=== PATIENT | female | born 1950 | race Caucasian/White ===

== ENCOUNTER 2022-01-09 08:03 | Emergency (ER) | payer OTHER, SELFPAY ==
--- NOTE | ~2022-01-09 | XR_ITS ---
EXAMINATION: XR ankle RT min 3V DATE: 01/09/2022 08:25 INDICATION: Generalized right ankle pain post injury while running TECHNIQUE: Anteroposterior, oblique, mortise, and lateral views of the right ankle were obtained. COMPARISON: None. FINDINGS: Alignment is normal. No fracture. Joint spaces are well maintained. No ankle joint effusion. The so ft tissues are unremarkable. IMPRESSION: 1. Negative right ankle radiographs. Reviewed, dictated and finalized at location A.
--- NOTE | 2022-01-09 08:07 | ED.LOWEXIN ---
HPI - Extremity Injury (Lower) General Chief Complaint: Extremity Injury, Lower Stated Complaint: Right Ankle Injury Time Seen by Provider: 01/09/22 08:06 Source: patient Mode of arrival: ambulatory Limitations: no limitations History of Present Illness HPI Narrative: Ms. Farrar is a 71-year-old female patient presenting to the clinic today with complaints of right ankle pain/injury when she was playing water tag yesterday with her granddaughter. She reports she is having pain to the back of her ankle and to the lateral ankle. Is unable to bear weight as the pain is a 9 out of 10. Is walking currently on crutches Related Data Home Medications Medication Instructions Recorded Confirmed No Home Medications 01/09/22 01/09/22 Allergies Allergy/AdvReac Type Severity Reaction Status Date / Time No Known Allergies Allergy Unknown Unknown Uncoded 01/09/22 08:33 Review of Systems Review of Systems: Pertinent positives per HPI. Patient denies any fever, chills, rash, headache, visual changes, dizziness, cough, runny nose, sore throat, shortness of breath, chest pain, palpitations, nausea, vomiting, diarrhea, constipation, abdominal pain, or any urinary issues. [facility] Past Medical History Medical History Age-related nuclear cataract, bilateral HLD (hyperlipidemia) Family History Family History Sibling Family history of malignant neoplasm Social History Social History Smoking status: Never smoker Second hand tobacco smoke exposure: No Alcohol intake: never Substance use: never Substance use type: does not use Gender identity (if verbalized by the patient): Female Sexual Orientation (if Verbalized by the Patient): Straight or Heterosexual Comments At the time of my signature, I reviewed and agree with the nursing past medical, surgical, social, and family history. There is no relevant family history pertinent to the patient complaint. Exam Narrative: General: Well-developed, well nourished, in no apparent distress Head: Normocephalic, atraumatic. Cardio: Regular rate and rhythm, s1 and s2 normal, no murmur appreciated. Resp: Clear to auscultation bilaterally, no rhonchi, rales, wheezing or rubs. Musculoskeletal: No deformity, tender to palpation over the posterior heel and lateral ankle, pain over the Achilles tendon with dorsiflexion and plantar flexion against resistance, painful to bear weight-rates pain 9 out of 10, grossly normal range of motion, muscle strength strong and equal, peripheral pulse strong, no edema, no cyanosis, walking on crutches Course Course Emergency Course: Portions of this record may have been created with voice recognition software. Level of Care: Express Care Visit Vital Signs Vital signs: Vital Signs Temperature 36.7 C 01/09/22 08:08 Pulse Rate 82 01/09/22 08:08 Respiratory Rate 16 01/09/22 08:08 Blood Pressure 137/83 01/09/22 08:08 Pulse Oximetry 100 01/09/22 08:08 Temperature 36.7 C 01/09/22 08:08 Pulse Rate 82 01/09/22 08:08 Respiratory Rate 16 01/09/22 08:08 Blood Pressure 137/83 01/09/22 08:08 Pulse Oximetry 100 01/09/22 08:08 Vital signs reviewed MDM - Extremity Injury (Lower) MDM Narrative Medical decision making narrative: At the time of visit patient is resting comfortably on the exam table. X-ray was performed to the right ankle and was negative. I suspect the patient has a sprain to the Achilles tendon as well as to the lateral fibular. Dipak wrap was applied and supportive measures were discussed with patient she voiced understanding of discharge instructions agrees with treatment plan. Differential Diagnosis Differential diagnosis: Likely ankle sprain and strain and ankle fracture Imaging Data Attestation: I personally reviewed and in
[2022-01-09 08:08] VITALS: BP 137/83; PULSE 82; RESP 16; TEMP 36.7; O2SAT 100
== END 2022-01-09 09:00 | disposition home or self-care (01) ==
PROVIDERS: Emergency Provider Nurse Practitioner Family; PCP Family Medicine
DX: S93.401A Sprain of unspecified ligament of right ankle, initial encounter (principal); X58.XXXA Exposure to other specified factors, initial encounter; Y93.89 Activity, other specified; E78.5 Hyperlipidemia, unspecified; H25.13 Age-related nuclear cataract, bilateral
CPT/HCPCS: 73610; 99213; G0463

== ENCOUNTER 2022-07-04 09:25 | Emergency (ER) | payer OTHER, SELFPAY ==
[2022-07-04 09:37] VITALS: BP 148/64; PULSE 108; RESP 16; TEMP 39.3; O2SAT 100
--- NOTE | 2022-07-04 09:40 | ED.URI ---
HPI - URI/Sore Throat General Chief Complaint: Upper Respiratory Infection Stated Complaint: left finger swollen/sore throat aches fever Time Seen by Provider: 07/04/22 09:30 Source: patient and RN notes reviewed History of Present Illness HPI Narrative: patient is a 72-year-old female who presents to the Urgent Care with complaints of body aches, sore throat, fever. Patient states that it started last night and she gargled with salt water but is not treated the fever. 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 No other acute complaints. No acute distress noted. Patient aware of the plan of care. Some parts of this dictation were generated by voice recognition software and may contain typographical and/or grammatical inaccuracies. Related Data Allergies Allergy/AdvReac Type Severity Reaction Status Date / Time No Known Allergies Allergy Verified 07/04/22 10:00 Review of Systems Review of Systems: CONSTITUTIONAL: reports fever EYES: Denies visual changes, redness, or discharge. ENT: Denies rhinorrhea, congestion, Otalgia. Reports a sore throat CARDIOVASCULAR: Denies chest pain, palpitations, or edema. RESPIRATORY: Denies cough or dyspnea. GASTROINTESTINAL: Denies abdominal pain, nausea, vomiting, or diarrhea. GENITOURINARY: Denies dysuria or hematuria. SKIN: Denies rash or itching. MUSCULOSKELETAL: Denies back pain, joint pain. Reports body aches NEUROLOGIC: Denies headache, numbness, or weakness. All other systems reviewed are negative, except as documented in HPI. [facility] Past Medical History Medical History Age-related nuclear cataract, bilateral HLD (hyperlipidemia) Family History Family History Sibling Family history of malignant neoplasm Social History Social History Smoking status: Never smoker Second hand tobacco smoke exposure: No Alcohol intake: never Substance use: never Substance use type: does not use Gender identity (if verbalized by the patient): Female Sexual Orientation (if Verbalized by the Patient): Straight or Heterosexual Spiritual care concerns: No Comments At the time of my signature, I reviewed and agree with the nursing past medical, surgical, social, and family history. There is no relevant family history pertinent to the patient complaint. Exam Narrative: GENERAL: This is a well-nourished, well-developed patient. Appears fatigued HEAD: normocephalic, atraumatic. EYES: PERRL. Sclera clear/white. Vision is grossly intact. EARS: External ears normal, auditory canals clear and without drainage, TMs normal without perforation. Hearing grossly intact. NOSE: External nose normal with no obvious nasal discharge, nares without redness, no rhinorrhea. THROAT: Mucous membranes moist, posterior pharynx clear. moderate postnasal drainage NECK: Neck supple, non-tender without lymphadenopathy, masses or thyromegaly. CARDIOVASCULAR: Regular rate and rhythm without murmurs, gallops, or rubs. RESPIRATORY: Clear to auscultation. Breath sounds equal bilaterally. No wheezes, rales, or rhonchi. SKIN: slightly flushed.warm, intact with no suspicious lesions or rash, good texture and turgor. NEURO: awake, alert, and oriented to person, place and time. There were no obvious focal neurologic abnormalities. EXTREMITIES: No clubbing, cyanosis, or edema. Course Course Level of Care: Express Care Visit Vital Signs Vital signs: Vital Signs Temperature 102.8 F H 07/04/22 09:37 Pulse Rate 108 H 07/04/22 09:37 Respiratory Rate 16 07/04/22 09:37 Blood Pressure 148/64 H 07/04/22 09:37 Pulse Oximetry 100 07/04/22 09:37 Oxygen Delivery Room Air 07/04/22 09:37 Temperature 102.8 F H 07/04/22 09:37 Pulse Rate 108 H
== END 2022-07-04 10:18 | disposition home or self-care (01) ==
PROVIDERS: Emergency Provider Nurse Practitioner Family; PCP Family Medicine
DX: J02.9 Acute pharyngitis, unspecified (principal); Z20.818 Contact with and (suspected) exposure to other bacterial communicable diseases; E78.5 Hyperlipidemia, unspecified; H25.13 Age-related nuclear cataract, bilateral
CPT/HCPCS: 87081; 87804; 87880; 99213; G0463

== ENCOUNTER 2022-07-25 09:00 | Outpatient (CLI) | payer OTHER, SELFPAY ==
--- NOTE | ~2022-07-25 | XR_ITS ---
EXAMINATION: XR chest 2V 07/25/2022 09:37 INDICATION: Right-sided chest pain PROCEDURE: 2 view chest COMPARISON: 04/17/2019 FINDINGS: The lungs are clear. The cardiomediastinal silhouette is within normal limits. There are no pleural effusions. There is no pneumothorax suspected. IMPRESSION: 1: NO ACUTE CARDIOPULMONARY DISEASE. Reviewed, dictated and finalized at location A. [employer]
[2022-07-25 10:37] LABS: Influenza A QL RT-PCR Negative (Negative); Influenza B QL RT-PCR Negative (Negative); SARS-CoV-2 RNA PCR Negative
== END 2022-07-25 09:01 | disposition home or self-care (01) ==
LOC: ANHLAB 09:03
PROVIDERS: PCP Family Medicine; Visit Provider Physician Assistant
DX: R51.9 Headache, unspecified (principal); J02.9 Acute pharyngitis, unspecified; R07.89 Other chest pain
CPT/HCPCS: 71046; 87636

== ENCOUNTER 2022-12-21 00:42 | Day surgery (SDC) | payer OTHER, SELFPAY ==
[2022-12-20 13:15] VITALS: BMI 19.4
[2022-12-21] VITALS (9 sets, daily range): BP systolic 102–169; BP diastolic 60–83; PULSE 58–74; RESP 11–16; TEMP 36.4; O2SAT 98–100
--- NOTE | 2022-12-21 10:19 | PM.IMHP ---
H&P: HPI History of Present Illness Date/Time: 12/21/22 10:19 Chief Complaint: ERNIE Narrative: Patient presents for outpatient ERNIE. Referred by Dr. Gallardo. Patient is a 72-year-old female with a hyperlipidemia, history of TIAs. 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 Thought to be possible cause of recurrent TIA. Patient presents today for follow-up ERNIE. No complaints this morning. No issues with her last ERNIE. Review of Systems Review of Systems: All systems reviewed & are unremarkable except as noted in HPI and below (HPI) [facility] Past Medical History Medical History Age-related nuclear cataract, bilateral HLD (hyperlipidemia) Family History Family History Sibling Family history of malignant neoplasm Social History Social History Smoking status: Never smoker Second hand tobacco smoke exposure: No Alcohol intake: never Substance use: never Substance use type: does not use Living arrangements: alone Occupation/Education: retired Gender identity (if verbalized by the patient): Female Sexual Orientation (if Verbalized by the Patient): Straight or Heterosexual Spiritual care concerns: No Meds Home Medications and Allergies Home Medications Medication Instructions Recorded Confirmed Type aspirin 81 mg tablet,delayed 81 mg PO DAILY 08/30/22 12/20/22 History release (Adult Low Dose Aspirin) clopidogrel 75 mg tablet 75 mg PO DAILY 08/30/22 12/20/22 History rosuvastatin 10 mg tablet 10 mg PO DAILY 08/30/22 12/20/22 History glucosamine-chondroitin 250 mg-200 1 tablet PO BID 12/20/22 12/20/22 History mg tablet (Osteo Bi-Flex) Allergies Allergy/AdvReac Type Severity Reaction Status Date / Time No Known Allergies Allergy Verified 12/21/22 08:50 Vital Signs Vital Signs - 24 hr 12/21/22 08:55 12/21/22 09:50 12/21/22 10:00 Temperature 36.4 C Pulse Rate 74 63 71 Respiratory Rate 16 12 14 Blood Pressure 132/66 165/79 H 141/68 H Pulse Oximetry 98 100 99 Oxygen Delivery Room Air Nasal Cannula Nasal Cannula Oxygen Flow Rate 3 3 04/28/23 10:05 12/21/22 09:55 12/21/22 10:15 Temperature Pulse Rate 61 70 58 L Respiratory Rate 12 16 11 L Blood Pressure 133/70 169/83 H 120/67 Pulse Oximetry 100 99 100 Oxygen Delivery Nasal Cannula Nasal Cannula Nasal Cannula Oxygen Flow Rate 3 3 3 Exam Const: General: comfortable and no acute distress HENMT: Mouth: Yes moist mucous membranes Eyes: General: appearance normal, both eyes and all related structures Sclera: sclerae normal Neck: Neck: supple Resp: Effort & Inspection: normal respiratory effort Auscultation: clear to auscultation bilaterally Cardio: Rate: regular rate Rhythm: regular rhythm Heart sounds: no murmurs GI: GI Palp: Yes Soft to palpation and No Tenderness to palpation present (GI) Skin: General skin exam: normal color Neuro: Speech: normal speech Extrem: General: normal to inspection Psych: Mental Status: mental status grossly normal Affect: normal affect Assessment and Plan Assessment and plan (1) TIA (transient ischemic attack): Code(s): G45.9 - Transient cerebral ischemic attack, unspecified Status: Acute Plan Proceed with ERNIE.
--- NOTE | 2022-12-21 10:24 | WPDMODSED ---
Moderate Sedation Note-Pt Data Patient Data Diagnosis: History of TIA Present Complaint: History of TIA Procedure to be performed/Plan: ERNIE Allergies Allergy/AdvReac Type Severity Reaction Status Date / Time No Known Allergies Allergy Verified 12/21/22 08:50 Home Medications Medication Instructions Recorded Confirmed Type aspirin 81 mg tablet,delayed 81 mg PO DAILY 08/30/22 12/20/22 History release (Adult Low Dose Aspirin) clopidogrel 75 mg tablet 75 mg PO DAILY 08/30/22 12/20/22 History rosuvastatin 10 mg tablet 10 mg PO DAILY 08/30/22 12/20/22 History glucosamine-chondroitin 250 mg-200 1 tablet PO BID 12/20/22 12/20/22 History mg tablet (Osteo Bi-Flex) Current Medications: Active Medications Sodium Chloride (Normal Saline Iv) 500 mls @ 30 mls/hr IV CONT .[id number] ONE Stop: 12/22/22 01:39 Sedation/Anesthesia: No previous sedation/anesthesia problems (including family history). PMFSH Past Medical History Medical History Age-related nuclear cataract, bilateral HLD (hyperlipidemia) Family History Family History Sibling Family history of malignant neoplasm Social History Social History Smoking status: Never smoker Second hand tobacco smoke exposure: No Alcohol intake: never Substance use: never Substance use type: does not use Living arrangements: alone Occupation/Education: retired Gender identity (if verbalized by the patient): Female Sexual Orientation (if Verbalized by the Patient): Straight or Heterosexual Spiritual care concerns: No Mod Sed Physical Exam Physical Exam Pre Procedural Exam: Normal: Appearance, Lungs, Heart Rate, Heart Rhythm, Neuro Exam, Abdomen, Extremities and Skin Hours since solid foods: 12 Hours since liquid intake: 8 Mallampati Classification: class II Internal Medicine - PN: Obj Da Vital Signs Vital Signs: Vital Signs - 24 hr 12/21/22 08:55 12/21/22 09:50 12/21/22 10:00 Temperature 36.4 C Pulse Rate 74 63 71 Respiratory Rate 16 12 14 Blood Pressure 132/66 165/79 H 141/68 H Pulse Oximetry 98 100 99 Oxygen Delivery Room Air Nasal Cannula Nasal Cannula Oxygen Flow Rate 3 3 12/21/22 10:05 12/21/22 09:55 12/21/22 10:15 Temperature Pulse Rate 61 70 58 L Respiratory Rate 12 16 11 L Blood Pressure 133/70 169/83 H 120/67 Pulse Oximetry 100 99 100 Oxygen Delivery Nasal Cannula Nasal Cannula Nasal Cannula Oxygen Flow Rate 3 3 3 Meds/Results Medications: Active Medications Generic Name Dose Route Start Last Admin Trade Name Freq PRN Reason Stop Dose Admin Sodium Chloride 500 mls @ 30 mls/hr 12/21/22 09:00 Normal Saline Iv IV CONT 12/22/22 01:39 .[id number] ONE ASA Classification/Sedation ASA Classification/Sedation ASA Class: II Emergent: No Risks: Risks, benefits and alternatives explained and patient/family accepted plan for sedation. Patient re-evaluated immediately prior to sedation.
--- NOTE | 2022-12-21 10:25 | WPDTEECHO ---
ERNIE TransEsophageal Echocardiogram Date of procedure: 12/21/22 Procedure Type: Date of Procedure: 12/21/2022 Brief History Of Present Illness: Patient is a pleasant 72-year-old female with history of TIA who is referred for ERNIE. 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 Thought to be possible cause of recurrent TIA. Procedure In Detail: After verbal and written informed consent was obtained, the patient risks, benefits, and alternatives explained in detail. The patient agreed to proceed with the plan of care as outlined above.?The patient was evaluated at bedside in [facility].?The posterior oropharynx, neck, and jaw angle all within normal limits on examination. Lungs were clear to auscultation. See pre-sedation note for further details. The patient was then placed in the appropriate 30 to 45 degree angle supine position at a slight left lateral decubitus position.?Patient was monitored throughout the study with telemetry, oxygen saturation, end-tidal CO2 monitoring, blood pressure, heart rate, and respirations.? The posterior hypopharynx was then locally anesthetized using repeated administration of Hurricaine spray as well as gargled viscous lidocaine.? After local anesthetic of the posterior hypopharynx was achieved and the oral bite block placed, moderate sedation was administered.? After confirmation of adequate moderate sedation, the transesophageal echocardiogram probe was advanced through the oral bite block into the posterior hypopharynx and into the esophagus easily and without complication.? Multiple, multiplanar echocardiographic images were obtained in multiple standard re- projections.? Pulsed wave, continuous-wave, and color-flow Doppler were utilized in conjunction with this study.? At the conclusion of the study, the transesophageal echocardiogram probe was removed easily and without complication.? The patient tolerated the procedure well without difficulty.? Patient was in sinus rhythm throughout the study. Moderate Sedation/Anesthesia administration: Patient reports no prior problems with sedation/anesthesia. Please see pre-sedation noted for physical examination documentation. As noted above, after adequate local anesthesia of the posterior hypopharynx was achieved, a total of 2mg intravenous Versed and a total of 50mcg intravenous Fentanyl in multiple divided doses was administered for moderate sedation.? Sedation start time was 09:50 and end time was 10:05 for a total intra-service/procedure face-face time of 15 minutes.? Sedation was administered by a qualified/certified observer Beth San RN under my supervision with intra-procedure [id number] observation and management throughout the entirety of the procedure.? There were no other issues or complications and patient tolerated the procedure well. See post-anesthesia documentation. FINDINGS: LEFT VENTRICLE: Size and systolic function were within normal limits without wall motion abnormalities with ejection fraction of 50-55%. RIGHT VENTRICLE:? Size and systolic function within normal limits. LEFT ATRIUM: Normal size. RIGHT ATRIUM: Appears moderately enlarged. INTERATRIAL SEPTUM: ? Interatrial septum is anatomically normal without evidence of shunt with color-flow Doppler nor with injection of agitated saline. Negative bubble study. MITRAL VALVE: ? Mitral valve is anatomically normal with preserved leaflet excursion and mild regurgitation. AORTIC VALVE: The aortic valve was an anatomically normal 3 leaflet structure with normal leaflet excursion and no regurgitation identified. Leaflets appear mildly sclerotic. No evidence of valvular vegetation, Lambl's excrescence, thrombus, or other abnormal findings. TRICUSPID VALVE: The tricuspid valve is anatomically normal with normal leaflet excursion with mild regurgitation identified.? No mobile elements identified. PULMONIC VALVE: Pulmonic valve is grossly normal. LEFT A
== END 2022-12-21 11:20 | disposition home or self-care (01) ==
PROVIDERS: PCP Family Medicine; Visit Provider Internal Medicine
PROC: (CPT 93312; principal; 2022-12-21 10:00)
DX: G45.9 Transient cerebral ischemic attack, unspecified (principal); I34.0 Nonrheumatic mitral (valve) insufficiency; I36.1 Nonrheumatic tricuspid (valve) insufficiency; E78.5 Hyperlipidemia, unspecified; H25.13 Age-related nuclear cataract, bilateral; Z79.82 Long term (current) use of aspirin; Z79.02 Long term (current) use of antithrombotics/antiplatelets
CPT/HCPCS: 93312; 93320; 93325; J2250; J3010

== ENCOUNTER 2023-11-30 08:19 | Emergency (ER) | payer OTHER, SELFPAY ==
[2023-11-30 08:32] VITALS: BP 138/59; PULSE 93; RESP 20; TEMP 37.3; O2SAT 100
--- NOTE | 2023-11-30 09:30 | ED.GENADULT ---
HPI - General Adult General Chief complaint: Upper Respiratory Infection Stated complaint: Headache/throat/congestion Time Seen by Provider: 11/30/23 08:46 Source: patient Mode of arrival: ambulatory Limitations: no limitations History of Present Illness HPI narrative: Patient presents for evaluation of sick symptoms since last night. Symptoms include headache, fever of 102.5 F, sore throat, generalized body aches, sinus congestion, pressure in the ears and sore throat. No recent sick contacts to her knowledge. She has not taken any medication to assist with her symptoms. She denies any cough, shortness of breath, nausea, vomiting, diarrhea. Related Data Home Medications Medication Instructions Recorded Confirmed aspirin 81 mg tablet,delayed 81 mg PO DAILY 08/30/22 11/30/23 release (Adult Low Dose Aspirin) glucosamine-chondroitin 250 mg-200 1 tablet PO BID 12/20/22 11/30/23 mg tablet (Osteo Bi-Flex) Allergies Allergy/AdvReac Type Severity Reaction Status Date / Time No Known Allergies Allergy Verified 11/30/23 08:53 Review of Systems Review of Systems: CONSTITUTIONAL: Reports fever. Denies chills, or sweats. EYES: Denies visual changes, redness, or discharge. ENT: Reports sinus congestion, sore throat and pressure in the ears CARDIOVASCULAR: Denies chest pain, palpitations, or edema. RESPIRATORY: Denies cough or dyspnea. GASTROINTESTINAL: Denies abdominal pain, nausea, vomiting, or diarrhea. GENITOURINARY: Denies dysuria or hematuria. SKIN: Denies rash or itching. MUSCULOSKELETAL: Reports generalized body aches NEUROLOGIC: Denies headache, numbness, dizziness, or weakness. PSYCHIATRIC: Denies anxiety or depression. [facility] Past Medical History Medical History Age-related nuclear cataract, bilateral BCC (basal cell carcinoma of skin) HLD (hyperlipidemia) Surgical History Surgical History No pertinent past surgical history Family History Family History Sibling Family history of malignant neoplasm Social History Social History Smoking status: Never smoker Second hand tobacco smoke exposure: No Alcohol intake: never Substance use: never Substance use type: does not use Living arrangements: alone Occupation/Education: retired Gender identity (if verbalized by the patient): Female Sexual Orientation (if Verbalized by the Patient): Straight or Heterosexual Spiritual care concerns: No Exam Narrative: GENERAL: Well-appearing, well-nourished, and in no acute distress. HEAD: Normocephalic, atraumatic. EYES: PERRLA and EOMI. ENT: Nares clear, no rhinorrhea or epistaxis. Mucous membranes moist. There is posterior pharyngeal erythema without exudate. Uvula is midline. Bilateral TMs pearly herron nonbulging NECK: Supple. No adenopathy or masses. No carotid bruits or JVD CHEST: Clear to auscultation. No respiratory distress. No wheezes rales or rhonchi HEART: Regular rate and rhythm. No murmur heard. Normal peripheral pulses. ABDOMEN: Soft, nontender, nondistended, normal active bowel sounds. EXTREMITIES: Normal range of motion. No edema. SKIN: Warm, dry, no rash. NEURO: No focal deficits. Alert and oriented x3. PSYCH: Normal mood and affect. Course Course Emergency Course: This is a 73-year-old female who presented for evaluation of sick symptoms. COVID, influenza, strep were all negative. Discussed risks versus benefits of initiating antibiotic therapy in the event that rapid strep was a false negative. She would like to hold off for the time being and we will send throat culture. Follow up with PCP and go to the ER for worsening symptoms. Provided with a list of OTC meds which may help and instructed to increase hydration. Pt i
== END 2023-11-30 09:51 | disposition home or self-care (01) ==
PROVIDERS: Emergency Provider Nurse Practitioner; PCP Family Medicine
DX: B34.9 Viral infection, unspecified (principal); Z20.822 Contact with and (suspected) exposure to COVID-19; E78.5 Hyperlipidemia, unspecified; Z85.828 Personal history of other malignant neoplasm of skin; Z79.82 Long term (current) use of aspirin
CPT/HCPCS: 87081; 87426; 87804; 87880; 99213; G0463

== ENCOUNTER 2024-10-12 01:30 | Day surgery (SDC) | payer OTHER, SELFPAY ==
[2024-10-05 16:21] VITALS: BMI 19.0
--- NOTE | 2024-10-07 13:05 | PC.NURSE ---
Spoke with patient regarding medication Plavix. Patient verbalizes understanding that the last dose is to be taken on 10/07/2024 and the Endoscopist will instruct them when to restart after the procedure.
[2024-10-12] VITALS (19 sets, daily range): BP systolic 70–135; BP diastolic 34–95; PULSE 65–83; RESP 10–21; TEMP 36.4–36.5; O2SAT 95–100; BMI 18.9
--- NOTE | ~2024-10-12 | XR_ITS ---
Upright portable view of the abdomen Clinical history: NG tube placement Findings: NG tube in satisfactory position. Bowel gas pattern is nonspecific. No evidence for obstruc tion or free air. No abnormal mass lesion or calcification is seen. Osseous structures are intact. Impression: NG tube in satisfactory position. Reviewed, dictated and finalized at [facility]. TEGIC PLANNING SPECIALIST Impression: NG tube in satisfactory position.
--- NOTE | ~2024-10-12 | CT_ITS ---
CT of the Abdomen and Pelvis: Indication: Abdominal pain Technique: 2.5 mm axial scans were obtained through the abdomen and pelvis following intravenous adm inistration of 100 cc of Omnipaque 350. Dose reduction technique was used on this scan by utilizing a utomated exposure control and iterative reconstruction technique. The dose-length product (DLP) was 2 57.18 mGy-cm. Findings: Scans through the lung bases are unremarkable. The liver, spleen, pancreas, gallbladder, adrenals and kidneys are within normal limits. No evidence of aortic aneurysm. No lymphadenopathy. Questionable minimal wall thickening of small bowel loops, some which are fluid-filled. Questionable mild wall thickening gastric antrum. No bowel obstruction. No abscess or free air. Images through the pelvis were performed. Urinary bladder unremarkable. No pelvic mass seen. No ascit es. Impression: Questionable mild nonspecific gastroenteritis. Reviewed, dictated and finalized at [facility]. NG STONE INSTALLER Impression: Questionable mild nonspecific gastroenteritis.
--- NOTE | 2024-10-12 01:43 | PC.NURSE ---
pt states that she is feeling very nauseated and does not want to complete the laying flat/ standing part of the orthostatic blood pressures.
[2024-10-12 01:45] LABS: Basophils Percent Auto 0.4 % (0.2-1.2); Eosinophils Absolute Auto 0.1 K/mm3 (0-0.3); Eosinophils Percent Auto 0.5 % (0-4.4); Hematocrit 34.2 % (37.0-47.0); Hemoglobin 11.2 g/dL (12.0-15.0); Immature Granulocyte Absolute 0.04 K/mm3 (0.00-0.031); Immature Granulocyte Percent A 0.4 % (0-0.5); Lymphocytes Absolute Auto 1.33 K/mm3 (0.9-3.2); Mean Corpuscular HGB Conc 32.7 g/dl (32-36); Mean Corpuscular Hemoglobin 30.9 pg (26-34); Mean Corpuscular Volume 94.2 fl (80-100); Mean Platelet Volume 9.3 fl (7.4-10.4); Monocytes Absolute Auto 0.7 K/mm3 (0.1-0.6); Neutrophils Absolute Auto 8.9 K/mm3 (1.3-6.7); Neutrophils Percent Auto 80.7 % (45.5-73.1); Platelet Count Result 184 k/mm3 (150-375); Red Blood Count 3.63 M/mm3 (4.2-5.4); Red Cell Distribution Width 11.9 % (11.5-14.5); White Blood Count 11.1 K/mm3 (4.5-10.0)
[2024-10-12 01:57] LABS: INR 1.1; Prothrombin Time 14.8 Seconds (11.1-14.7)
[2024-10-12 01:58] LABS: Alanine Aminotransferase 23 U/L (6-35); Alkaline Phosphatase 64 U/L (38-126); Anion Gap 9 mmol/L (4-12); Aspartate Amino Transferase 29 U/L (14-36); Bilirubin,Total 0.7 mg/dL (0.2-1.3); Blood Urea Nitrogen 23 mg/dL (7-17); Calcium 9.1 mg/dL (8.4-10.2); Carbon Dioxide 26 mmol/L (22-30); Chloride 99 mmol/L (98-107); Estimated CRCL calculation 44 ml/min; Estimated Glomerular Filt Rate > 60; Glucose 156 mg/dL (65-110); Partial Thromboplastin Time 22.2 Seconds (22.3-36.8); Sodium 134 mmol/L (137-145)
--- OUTSIDE RECORDS SUMMARY | 2024-10-12 02:20 | XMS_ITS | Referral Summary ---
Author Organization [facility] Address [address] [place] [address] Care Team Providers Care Railroad Crane Operator Name Role Phone Parker Gallardo MD Primary Care Provider Eric RODRIGUEZ OD, Lewis Francis Unavailable [phone] Fred Wallace MD Unavailable [phone] Sundar Curiel MD Unavailable [phone] Allergies No known active allergies Medications lutein 6 mg tablet Take by mouth Active glucosam-chondro itin-vit C-Mn 826-844-01-2.5 mg tablet Take by mouth Active aspirin 81 mg chewable tablet Take 1 tablet (81 mg total) by mouth daily 30 tablet 11 08/22/2022 Active rosuvastatin (CRESTOR) 10 mg tablet Take 1 tablet (10 mg total) by mouth daily 30 tablet 11 08/21/2022 Active clopidogreL (PLAVIX) 75 mg tablet Take 1 tablet (75 mg total) by mouth daily 30 tablet 11 08/23/2022 Active Active Problems Problem Noted Date Diagnosed Date 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 TIA (transient ischemic attack) 08/20/2022 Confusion 08/19/2022 Elevated blood pressure reading 08/19/2022 Elevated BUN 08/19/2022 Other headache syndrome 08/19/2022 Diplopia 08/19/2022 Acute nonintractable headache Social History Tobacco Use Types Packs/Day Years Used Date Smoking Tobacco: Never Smokeless Tobacco: Never Tobacco Cessation:Counseling Given: Not Answered Alcohol Use Standard Drinks/Week Comments Defer 0 (1 standard drink = 0.6 oz pur e alcohol) Social Connection and Isolat ion Panel [NHANES] Answer Date Recorded In a typical week, how many times do you talk on the phone with family, friends, or neighbors? Three times a week 08/22/2022 How often do you get togethe r with friends or relatives? Three times a week 08/22/2022 How often do you attend chur ch or islam services? More than 4 times per year 08/22/2022 Do you belong to any clubs o r organizations such as buddhist groups, unions, fraternal or athletic groups, or school groups? No 08/22/2022 How often do you attend meet ings of the clubs or organizations you belong to? Never 08/22/2022 Are you , , di vorced, , never , or living with a partner? 08/22/2022 AUDIT-C Answer Date Recorded Q1: How often do you have a drink containing alc ohol? Never 08/22/2022 Average Number of Drinks Not on file 022 Frequency of Binge Drinking Not on file 07/27 Overall Financial Resource Strain (CARDIA) Answe r Date Recorded How hard is it for you to pa y for the very basics like food, housing, medical care, and heating? Not very hard 08/22/2022 Hunger Vital Sign Answer Date Recorded Within the past 12 months, y ou worried that your food would run out before you got the money to buy more. Never true 08/22/20 22 Within the past 12 months, t he food you bought just didn't last and you didn't have money to get more. Never true 08/22/2022 PRAPARE - Transportation Answer Date Re corded In the past 12 months, has l ack of transportation kept you from medical appointments or from getting medications? No 07/27 In the past 12 months, has l ack of transportation kept you from meetings, work, or from getting things needed for daily living? No 08/22/2022 Comments No Sex and Gender Information Value Date Recorded Sex Assigned at Not on file Legal Sex Female 6:28 PM CATTERY OPERATOR Gender Identity Not on file Sexual Orientation Not on file Last Filed Vital Signs Vital Sign Reading Time Taken Comments Blood Pressure 107/61 10/26/2022 8:27 AM CATTERY OPERATOR Pulse 77 10/26/2022 8:27 AM CATTERY OPERATOR Temperature 36.4 C (97.6 F) 08/23/2022 12:09 PM CATTERY OPERATOR Respiratory Rate 20 08/23/2022 12:09 PM CATTERY OPERATOR Oxygen Saturation 98% 10/26/2022 8:27 AM CATTERY OPERATOR Inhaled Oxygen Concentration - - Weight 49 kg (108 lb) 06/05/2024 8:43 AM CDT Height 160 cm (5' 3 ) 06/05/2024 8:43 AM CDT Body Mass Index 19.13 06/05/2024 8:43 AM CDT Plan of Treatment Not on file Procedures Procedure Name Priority Date/Time Associated Diagnosis Comments SCREENING MAMMOGRAM BILATERAL W JOSEPH Schedule Routine, Read Routine (OP Routine) 06/05/2024 8:49 AM CDT Screening mammogram, encounter for from Last 3 Months or Most Recently Relevant to Health Maintenance Results * Screening Mammogram Bilateral W Joseph (06/05/2024 8:49 AM CDT) Anatomical Region Laterality Modality Breast Bilateral Mammography 06/05/2024 4:49 PM CDT Impressions 06/05/2024 4:49 PM CDT There is no mammographic evidence of malignancy. A 1 year screening mammogram is recommended. BI-RADS: 1 - Negative. The patient has been or will be contacted. The patient will be entered into a reminder system with a target due date of 1 year for her next mammogram. Electronically signed by: Rangel Polk M.D. Narrative 06/05/2024 4:49 PM CDT EXAMINATION: SCREENING MAMMOGRAM BILATERAL W JOSEPH ORDERING HEALTHCARE PROVIDER: SELF SCREENING MAMMOGRAM HISTORY: Routine screening mammography. COMPARISON: 05/30/2023,05/19/2022, 04/21/2021, 04/16/2020, 04/15/2019 TECHNIQUE: CC and MLO views of the bilateral breasts were obtained with digital technique using breast tomosynthesis with C view. Computer aided detection was utilized. FINDINGS: DENSITY: The breasts are heterogeneously dense, which may obscure small masses. BREASTS: There are no suspicious masses, suspicious calcifications, or other suspicious findings in either breast. There has been no suspicious interval change. us Self Screening Mammogram IMG MAMMO PROCEDURES Fi nal Result from Last 3 Months or Most Recently Relevant to Health Maintenance Insurance [facility] [place] [id number] Advance Directives For more information, please contact: [phone] * Full Code (Latest Code Status on File) Date Activated Date Inactivated Comments 08/21/2022 10:11 PM 08/23/2022 8:47 PM * Full Code Date Activated Date Inactivated Comments 08/20/2022 1:01 AM 08/21/2022 7:07 PM Care Teams Railroad Crane Operator Relationship Specialty Start Date End Date Parker Gallardo MD [address] [facility] [address] [place] [address] PCP - General 03/06/17 Alejandro Reyes III, OD [address] [place] [address] Referring Physician Optometry 06/15/22 Fred Wallace MD [address] [place] [address] Referring Physician Ophthalmology 06/15/22 Sundar Curiel MD [address] [place] [address] [address] [place] [address] Consulting Physician Neurology 08/23/22
--- OUTSIDE RECORDS SUMMARY | 2024-10-12 02:20 | XMS_ITS | Clinical Summary ---
Author Organization [facility] Address [address] [facility] [place] [address] Care Team Providers Care Clinical Services Director Name Role Phone Parker Gallardo MD Primary Care Provider [phone] Source Comments [facility],non-owned Affiliates and Associated Physician Practices is amultiple site organization consisting of ambulatory clinics and hospital sitesin [place], [place], [place] and [place]. This disclosure is being madepursuant to the Care Everywhere program and may not contain all information available regarding this patient. Last updated 18.[facility] Allergies No known active allergies Medications Be aware that medications may not be up to date on this document. Always verify current medications with the patient. No known medications Social History Tobacco Use Types Packs/Day Years Used Date Smoking Tobacco: Never Sex and Gender Information Value Date Recorded Sex Assigned at Not on file Gender Identity Not on file Sexual Orientation Not on file Last Filed Vital Signs Vital Sign Reading Time Taken Comments Blood Pressure 118/70 02/01/2017 10:52 AM CDT Pulse 77 02/01/2017 10:52 AM CDT Temperature 37 C (98.6 F) 02/01/2017 10:52 AM CDT Respiratory Rate 16 02/01/2017 10:52 AM CDT Oxygen Saturation 98% 02/01/2017 10:52 AM CDT Inhaled Oxygen Concentration - - Weight 49 kg (108 lb) 02/01/2017 10:52 AM CDT Height 160 cm (5' 3 ) 02/01/2017 10:52 AM CDT Body Mass Index 19.13 02/01/2017 10:52 AM CDT Plan of Treatment Health Maintenance Due Date Last Done Comments BONE DENSITY TESTING 1950 COLOGUARD (AGES 45-75) - COL ON CA SCREENING 1950 COLON MONITORING 1950 COLONOSCOPY - COLON CA SCREENING 1952 CT COLONOGRAPHY - COLON CA SCREENING 1950 Colorectal Cancer Screening 1950 FIT - COLON CA SCREENING 1952 FLEX SIG - COLON CA SCREENING 1952 LIPID TESTING 1950 MAMMOGRAM 1950 MEDICARE AWV 12 MONTHS 1950 HEPATITIS C SCREENING 02/22/1970 DTAP/TDAP/TD VACCINES (1 - Tdap) 02/26/1971 PNEUMOCOCCAL VACCINE 50+ (1 of 1 - PCV) 02/26/2002 ZOSTER VACCINE (1 of 2) 02/26/2002 COVID-19 VACCINE (1 - 2023-2 5 season) 2024 INFLUENZA VACCINE (#1) 2024 DEPRESSION SCREENING 08/26/2024 Respiratory Syncytial Virus (RSV) Vaccine Pt: or over 60 yrs (1 - 1-dose 75+ series) 02/26/2027 HEPATITIS B VACCINE Aged Out No longe r eligible based on patient's age to complete this topic HIB VACCINE Aged Out No longer eligi ble based on patient's age to complete this topic HPV VACCINE Aged Out No longer eligi ble based on patient's age to complete this topic MENINGOCOCCAL (Group B) VACCINE Aged Out No longer eligible based on patient's age to complete this topic MENINGOCOCCAL VACCINE Aged Out No jewel enrique eligible based on patient's age to complete this topic Care Teams Clinical Services Director Relationship Specialty Start Date End Date Parker Gallardo MD [address] [place], [place] [id number] PCP - General 12/06/20
--- OUTSIDE RECORDS SUMMARY | 2024-10-12 02:20 | XMS_ITS | Patient Health Summary ---
Author Organization [facility] Address [address] [facility] [place] [address] Care Team Providers Care Entry Analyst Name Role Phone Parker Gallardo MD Primary Care Provider [phone] Note from [facility],non-owned Affiliates and Associated Physician Practices is amultiple site organization consisting of ambulatory clinics and hospital sitesin [place], [place], [place] and [place]. This disclosure is being madepursuant to the Care Everywhere program and may not contain all information available regarding this patient. Last updated 18.[facility] Allergies No known active allergies Medications Be [...] Mass Index 19.13 02/01/2017 10:52 AM CDT Procedures * DERMATOPATHOLOGY(Performed 12/02/2020) * STREP A SCREEN - POINT OF CARE (AMB) STL(Performed 02/01/2017) Performed for Acute pharyngitis, unspecified etiology Results * DERMATOPATHOLOGY (12/02/2020 12:00 AM CDT) Case Report Dermatopathology Report Case: [id number] Authorizing Provider: Segundo Iverson MD Collected: 12/02/2020 12:00 AM Ordering Location: [facility] Derm[facility] Lab Received: 12/06/2020 08:15 AM Pathologist: Carmel Pena MD Specimen: Skin, left calf 5:41 PM CDT DERMATOPATHOLOGY LABORATORY Final Diagnosis Specimen A. SKIN, left calf: BASAL CELL CARCINOMA, MICRONODULAR TYPE (C44.719) 5:41 PM CDT DERMATOPATHOLOGY LABORATORY Clinical History Pig BCCA vs MM vs irr SK. Path# [id number]. 5:41 PM CDT DERMATOPATHOLOGY LABORATORY Gross Description Specimen A: Received is one formalin filled container labeled with the patient's name and designated left calf. The specimen consists of a shave biopsy measuring [id number]. Jar 0. 5:41 PM CDT DERMATOPATHOLOGY LABORATORY Microscopic Description Specimen A. SKIN, left calf: Within the dermis there are small aggregates of basaloid cells with a high nuclear to cytoplasmic ratio and peripheral palisading of their nuclei. 5:41 PM CDT DERMATOPATHOLOGY LABORATORY Disclaimer An external and internal positive and negative controls are appropriate for the histochemical, immunohistochemical and immunofluorescence stain(s) in this case (if any), except where stated explicitly. The performance characteristics of the stain(s) cited in this report were developed and its performance characteristic determined by the Dermatopathology Laboratory at [facility], directed by Dr. Luis Manuel Conti. These tests need not be, and therefore are not, approved by the [place] Food and Drug Administration. The tests are used for clinical purposes. Billing Codes Specimen Charges Stain Charges 15879 1 1 5:41 PM CDT DERMATOPATHOLOGY LABORATORY Embedded Images 1 5:41 PM CDT DERMATOPATHOLOGY LABORATORY Pathology/Cytolog y TISSUE SPECIMEN FROM SKIN / Unknown 12/02/2020 12/06/2020 8:15 AM CDT Segundo Iverson MD LAB - PATHOLOGY/CYTO LOGY ORDERABLES DERMATOPATHOLOGY LABORATORY [facility] - Department of Dermatology [address], [address] [phone] * STREP A SCREEN (02/01/2017) Strep A Rapid POCT Negative Negative Strep A Internal Control Present Lot # [id number] Expiration Date [id number] Throat ENTIRE THROAT (SURFACE REGION OF NECK) / Unknown 02/01/2017 Charlie Arguelles ELECTRICIAN OUTSIDE-REINSURANCE ANALYST LAB - POINT OF CARE ORDERABLES Care Teams Entry Analyst Relationship Specialty Start Date End Date Parker Gallardo MD [address] [place] [address] PCP - General 12/06/20
--- OUTSIDE RECORDS SUMMARY | 2024-10-12 02:20 | XMS_ITS | Referral Summary ---
Author Organization [facility] Address [address] [facility] [place] [address] Care Team Providers Care Supervisor Sanding Name Role Phone Parker Gallardo MD Primary Care Provider [phone] Source Comments [facility],non-owned Affiliates and Associated Physician Practices is amultiple site organization consisting of ambulatory clinics and hospital sitesin [place], [place], [place] and [place]. This disclosure is being madepursuant to the Care Everywhere program and may not contain all information available regarding this patient. Last updated 18.[facility] Allergies No known active allergies Medications Be [...] 02/01/2017 10:52 AM CDT Plan of Treatment Not on file Care Teams Supervisor Sanding Relationship Specialty Start Date End Date Parker Gallardo MD [address] [place] [address] PCP - General 12/06/20
--- OUTSIDE RECORDS SUMMARY | 2024-10-12 02:20 | XMS_ITS | Encounter Summary ---
Author Organization [facility] Address [address] [facility] [place] [address] Care Team Providers Care Glass Cutter Helper Name Role Phone Parker Gallardo MD Primary Care Provider [phone] Encounter Details Date Type Department Care Team (Late st Contact Info) Description 12/06/2020 Lab Requisition [facility] DermPath Lab [address] [facility] [place] [address] Segundo Iverson MD [address] [place] [address] Social History Tobacco Use Types Packs/Day Years Used Date Smoking Tobacco: Never Sex and Gender Information Value Date Recorded Sex Assigned at Not on file Gender Identity Not on file Sexual Orientation Not on file documented as of this encounter Plan of Treatment Not on file documented as of this encounter Procedures Procedure Name Priority Date/Time Associated Diagnosis Comments DERMATOPATHOLOGY Routine 12/02/2020 12:0 0 AM CDT documented in this encounter Results * DERMATOPATHOLOGY (12/02/2020 12:00 AM CDT) Case Report Dermatopathology Report Case: [id number] Authorizing Provider: Segundo Iverson MD Collected: 12/02/2020 12:00 AM Ordering Location: [facility] DermPath Lab Received: 12/06/2020 08:15 AM Pathologist: Carmel Pean MD Specimen: Skin, left calf 04/14/202 1 5:41 PM CDT DERMATOPATHOLOGY LABORATORY Final Diagnosis Specimen A. SKIN, left calf: BASAL CELL CARCINOMA, MICRONODULAR TYPE (C44.719) 5:41 PM CDT DERMATOPATHOLOGY LABORATORY Clinical History Pig BCCA vs MM vs irr SK. Path# [id number]. 5:41 PM CDT DERMATOPATHOLOGY LABORATORY Gross Description Specimen A: Received is one formalin filled container labeled with the patient's name and designated left calf. The specimen consists of a shave biopsy measuring [id number]. Jar 0. 5:41 PM CDT DERMATOPATHOLOGY LABORATORY [...] characteristic determined by the Dermatopathology Laboratory at [facility], directed by Dr. Luis Manuel Conti. These tests need not be, and therefore are not, approved by the [place] Food and Drug Administration. The tests are used for clinical purposes. Billing Codes Specimen Charges Stain Charges 16338 1 5:41 PM CDT DERMATOPATHOLOGY LABORATORY Embedded Images 5:41 PM CDT DERMATOPATHOLOGY LABORATORY Pathology/Cytolog y TISSUE SPECIMEN FROM SKIN / Unknown 12/02/2020 12/06/2020 8:15 AM CDT Segundo Iverson MD LAB - PATHOLOGY/CYTO LOGY ORDERABLES DERMATOPATHOLOGY LABORATORY [facility] - Department of Dermatology [address] [phone] documented in this encounter Visit Diagnoses Not on filedocumented in this encounter Care Teams Glass Cutter Helper Relationship Specialty Start Date End Date Parker Gallardo MD [address] [place] [address] PCP - General 12/06/20 documented as of this encounter
--- OUTSIDE RECORDS SUMMARY | 2024-10-12 02:20 | XMS_ITS | Clinical Summary ---
Author Organization [facility] Address [address] [place] [address] Phone Care Team Providers Care Disability Insurance Hearing Officer Name Role Phone Parker Gallardo MD Primary Care Provider Social History Tobacco Use Types Packs/Day Years Used Date Smoking Tobacco: Never Assessed Comments Unknown Sex and Gender Information Value Date Recorded Sex Assigned at Not on file Legal Sex Female 8:08 PM CDT Gender Identity Not on file Sexual Orientation Not on file Plan of Treatment Health Maintenance Due Date Last Done Comments DEXA Bone Density 1950 Hepatitis C Virus (HCV) Screening 1950 TdaP Immunization 1950 Colonoscopy 02/26/1997 Colorectal Cancer Screening 02/26/1997 Cologuard 02/26/2002 Immunochemical Fecal Occult Blood 02/26/2002 Mammogram 02/26/2002 Pneumococcal Immunization (5 0+ years) (1 of 1 - PCV) 02/26/2002 Zoster Immunization (1 of 2) 02/26/2002 Influenza Immunization (#1) 2024 SARS-COV-2 Immunization ( season) 2024 Respiratory Syncytial Virus (RSV) Immunization (Adult) (1 - 1-dose 75+ series) 02/26/2027 Hepatitis B Immunization Aged Out No longer eligible based on patient's age to complete this topic Meningococcal Immunization (ACWY) Aged Out No longer eligible based on patient's age to complete this topic Rotavirus Immunization Aged Out No lo nger eligible based on patient's age to complete this topic Care Teams Disability Insurance Hearing Officer Relationship Specialty Start Date End Date Parker Gallardo MD [address] [place] [address] PCP - General Family Medicine 04/21/19
--- OUTSIDE RECORDS SUMMARY | 2024-10-12 02:20 | XMS_ITS | Encounter Summary ---
Author Organization [facility] Address [address] [place] [address] Care Team Providers Care Dynamometer Tester Name Role Phone Parker Gallardo MD Primary Care Provider Eric RODRIGUEZ OD, Lewis Francis Unavailable [phone] Fred Wallace MD Unavailable [phone] Sundar Curiel MD Unavailable Reason for Visit * Reason Onset Date Comments Scheduling Appointments 04/20/2021 Confirmi ng mammogram appt Encounter Details Date Type Department Care Team (Late st Contact Info) Description 04/20/2021 Telephone [facility] [address] [place] [address] N[address]ma Palma [address] Scheduling Appointments (Confirming mammogram appt) Social History Tobacco Use Types Packs/Day Years Used Date Smoking Tobacco: Never Assessed Comments No Sex and Gender Information Value Date Recorded Sex Assigned at Not on file Legal Sex Female 6:28 PM INSURANCE CUSTOMER SERVICE SPECIALIST Gender Identity Not on file Sexual Orientation Not on file documented as of this encounter Plan of Treatment Not on file documented as of this encounter Visit Diagnoses Not on filedocumented in this encounter Additional Health Concerns Infection Onset Date Last Indicated Resolved Time COVID: Suspected 08/19/2022 08/19/2022 08/19/2022 9:32 PM INSURANCE CUSTOMER SERVICE SPECIALIST COVID: Suspected 08/21/2022 08/21/2022 08/21/2022 10:00 PM INSURANCE CUSTOMER SERVICE SPECIALIST documented as of this encounter Care Teams Dynamometer Tester Relationship Specialty Start Date End Date Parker Gallardo MD [address] [place] [address] PCP - General 03/06/17 Alejandro Reyes III, OD [address] [place] [address] Referring Physician Optometry 06/15/22 Fred Wallace MD [address] [place] [address] Referring Physician Ophthalmology 06/15/22 Sundar Curiel MD [address] [place] [address] [address] [place] [address] Consulting Physician Neurology 08/23/22 documented as of this encounter
--- OUTSIDE RECORDS SUMMARY | 2024-10-12 02:20 | XMS_ITS | Clinical Summary ---
Author Organization [facility] Address [address] [place] [address] Care Team Providers Care Ball Fringe Machine Operator Name Role Phone Parker Gallardo MD Primary Care Provider Eric RODRIGUEZ OD, Alejandro Shah Unavailable [phone] Fred Wallace MD Unavailable [phone] Sundar Curiel MD Unavailable [phone] Allergies No known active allergies Medications lutein 6 mg tablet Take by mouth Active glucosam-chondro itin-vit C-Mn 794-606-02-2.5 mg tablet Take by mouth Active aspirin [...] syndrome 08/19/2022 Diplopia 08/19/2022 Acute nonintractable headache Surgical History Surgery Date Site/Laterality Comments NO PAST SURGERIES Medical History Medical History Date Comments Plantar fasciitis Hypertension Family History Medical History Relation Name Comments Breast cancer Father's Sister isidro jimenez Relation Name Status Comments Father's Sister isidro jimenez Alive Social History Tobacco Use Types Packs/Day Years [...] often do you attend chur ch or synagogue services? More than 4 times per year 08/22/2022 Do you belong to any clubs o r organizations such as uatsdin groups, unions, fraternal or athletic groups, or [...] on file Legal Sex Female 6:28 PM MAT WEAVER Gender Identity Not on file Sexual Orientation Not on file Obstetrics History Para Term AB IAB SAB Ectopic Multiple Livin g Live Births 2 2 2 Date Outcome GA Total Labor Labor/2nd/3rd Weight Sex Type Anes PTL Ritu A1 A5 Name Clin Term Term Last Filed Vital Signs Vital Sign Reading Time Taken Comments Blood Pressure 107/61 10/26/2022 8:27 AM MAT WEAVER Pulse 77 10/26/2022 8:27 AM MAT WEAVER Temperature 36.4 C (97.6 F) 08/23/2022 12:09 PM MAT WEAVER Respiratory Rate 20 08/23/2022 12:09 PM MAT WEAVER Oxygen Saturation 98% 10/26/2022 8:27 AM MAT WEAVER Inhaled Oxygen Concentration - - Weight 49 kg (108 lb) 06/05/2024 8:43 AM CDT Height 160 cm (5' 3 ) 06/05/2024 8:43 AM CDT Body Mass Index 19.13 06/05/2024 8:43 AM CDT Plan of Treatment Health Maintenance Due Date Last Done Comments Colon Cancer Screening-Colonoscopy 1950 Depression Screening 1952 Fall Risk Assessment 1950 Hepatitis C Screening 1950 Osteoporosis Screening-Bone Density Scan 1950 Hepatitis B Screening 02/26/1970 Zoster Vaccine (1 of 2) 02/26/2002 Pneumococcal vaccine 65+ (1 of 1 - PCV) 02/26/2017 Well Visit 65+ 02/26/2017 Influenza Vaccine (#1) 2024 Breast Cancer Screening-Mammogram 06/05/2025 06/05/2024, 05/30/2023, 05/19/2022, Additional history exists DTaP/Tdap/Td Vaccine (2 - Td or Tdap) 11/22/2025 11/23/2015 Procedures Procedure Name Priority Date/Time Associated Diagnosis [...] Most Recently Relevant to Health Maintenance Insurance [facility] Advance Directives For more information, please contact: [phone] * Full Code (Latest Code Status on File) Date Activated Date Inactivated Comments 08/21/2022 10:11 PM 08/23/2022 8:47 PM * Full Code Date Activated Date Inactivated Comments 08/20/2022 1:01 AM 08/21/2022 7:07 PM Care Teams Ball Fringe Machine Operator Relationship Specialty Start Date End Date Parker Gallardo MD [address] [place] [address] PCP - General 03/06/17 Alejandro Reyes III, OD [address] [place] [address] Referring Physician Optometry 06/15/22 Fred Wallace MD [address] [place] [address] Referring Physician Ophthalmology 06/15/22 Sundar Curiel MD [address] [place] [address] [place] [address] Consulting Physician Neurology 08/23/22
[2024-10-12] MEDS: PANTOPRAZOLE SODIUM IV 40 MG VIAL 80 MG IV PUSH (02:50)
[2024-10-12] MEDS: SODIUM CHLORIDE 0.9% IV 1,000 ML 999 ML IV CONT (02:50)
--- NOTE | 2024-10-12 06:17 | ED_ITS ---
HPI - General Adult General Chief complaint: GI Bleed Stated complaint: N/V/D, VOMITING BLOOD, PREPPING FOR COLONOSCOPY Time Seen by Provider: 10/12/24 01:57 History of Present Illness HPI narrative: This 74-year-old female presenting ED with chief complaint of coffee-ground emesis. Patient was bowel prepping for a colonoscopy to be performed today when she started developed vomiting. At 1st it was clear liquid, however then it turned into dark reddish brown material. Associated with significant epigastric pain. She then came to the hospital for evaluation. Patient is on Plavix but discontinued it several days ago. No other use of blood thinners. No history of GIB. No liver cirrosis. Related Data Home Medications ?Medication ?Instructions ?Recorded ?Confirmed ?Last Taken ?Type aspirin 81 mg tablet,delayed 81 mg PO DAILY 08/30/22 10/05/24 12/20/22 08:00 History release (Adult Low Dose Aspirin) glucosamine-chondroitin 250 mg-200 1 tablet PO BID 12/20/22 10/05/24 Unknown History mg tablet (Osteo Bi-Flex) CATALYN 3 cap PO DAILY 10/05/24 10/05/24 Unknown History CONGAPLEX 3 cap PO DAILY 10/05/24 10/05/24 Unknown History EYEPLEX 2 cap PO DAILY 10/05/24 10/05/24 Unknown History lutein 20 mg-zeaxanthin 1 3 cap PO DAILY 10/05/24 10/05/24 Unknown History mg-bilberry fruit extract 2.2 mg capsule Allergies Allergy/AdvReac Type Severity Reaction Status Date / Time No Known Allergies Allergy Verified 10/05/24 16:13 [facility] Past Medical History Medical History Need for pneumococcal vaccination BCC (basal cell carcinoma of skin) HLD (hyperlipidemia) Age-related nuclear cataract, bilateral Surgical History Surgical History No pertinent past surgical history Family History Family History Sibling Family history of malignant neoplasm Social History Social History Smoking status: Never smoker Second hand tobacco smoke exposure: No Alcohol intake: current Substance use: never Substance use type: does not use Living arrangements: with family Occupation/Education: retired Gender identity (if verbalized by the patient): Female Sexual Orientation (if Verbalized by the Patient): Straight or Heterosexual Spiritual care concerns: No Exam 2 Narrative: APPEARANCE: No apparent distress. Head: atraumatic. EYES: EOMI, NOSE: Atraumatic NECK: Trachea midline RESPIRATORY: No increased rate of breathing, CTAB CARDIOVASCULAR: RRR, ABDOMINAL: Tenderness in the epigastric area without guarding rebound MUSCULOSKELETAl: No obvious deformities NEURO: Alert. Moving 4/4 extremities SKIN:: Warm, dry. Normal color PSYCHIATRIC: Normal affect Course Vital Signs Vital signs: Vital Signs Temperature 97.7 F 10/12/24 01:30 Pulse Rate 82 10/12/24 01:30 Respiratory Rate 11 L 10/12/24 01:30 Blood Pressure 109/65 10/12/24 01:30 Pulse Oximetry 98 10/12/24 01:30 Oxygen Delivery Room Air 10/12/24 01:30 Temperature 97.7 F 10/12/24 01:30 Pulse Rate 78 10/12/24 05:02 Respiratory Rate 18 10/12/24 05:02 Blood Pressure 127/75 10/12/24 05:02 Pulse Oximetry 100 10/12/24 05:02 Oxygen Delivery Room Air 10/12/24 01:30 Medical Decision Making MDM Narrative Medical decision making narrative: -Course: 74-year-old female presenting with dark vomiting after doing bowel prep. Labs and CT scan unremarkable. An NG-tube was placed to a better evaluate for upper GI bleed. NG drained coffee ground fluid. Case was discussed with Dr. Morales. Patient will retain her slot on the scope schedule and instead they will do an EGD to evaluate for upper GI bleeding. Further management per the GI service. -DDX includes but is not limited to: Maria G-De La Rosa tear, esophagitis, gastritis, peptic ulcer disease Vital Signs Vital Signs: Vital Signs Temperature 97.7 F 10/12/24 01:30 Pulse Rate 82 10/12/24 01:30 Respiratory Rate 11 L 10/12/24 01:30 Blood Pressure 109/65 10/12/24 01:30 Pulse Oximetry 98 10/12/24 01:30 Oxygen Delivery Room Air 10/12/24 01:30 Temperature 97.7 F 10/12/24 01:30 Pulse Rate 78 10/12/24 05:02 Respiratory Rate 18 10/12/24 05:02 Blood Pressure 127/75 10/12/24 05:02 Pulse Oximetry 100 10/12/24 05:02 Oxygen Delivery Room Air 10/12/24 01:30 Lab Data 10/12/24 01:39 10/12/24 01:39 Labs: Lab Results 10/12/24 Range/Units 01:39 WBC 11.1 H (4.5-10.0) K/mm3 RBC 3.63 L (4.2-5.4) M/mm3 Hgb 11.2 L (12.0-15.0) g/dL Hct 34.2 L (37.0-47.0) % MCV 94.2 (80-100) fl MCH 30.9 (26-34) pg MCHC 32.7 (32-36) g/dl RDW 11.9 (11.5-14.5) % Plt Count 184 (150-375) k/mm3 MPV 9.3 (7.4-10.4) fl Immature Gran % (Auto) 0.4 (0-0.5) % Neut % (Auto) 80.7 H (45.5-73.1) % Lymph % (Auto) 12.0 L (18.3-44.2) % [place] % (Auto) 6.0 (2.6-8.5) % Eos % (Auto) 0.5 (0-4.4) % Baso % (Auto) 0.4 (0.2-1.2) % Lymph # (Auto) 1.33 (0.9-3.2) K/mm3 [place] # (Auto) 0.7 H (0.1-0.6) K/mm3 Eos # (Auto) 0.1 (0-0.3) K/mm3 Baso # (Auto) 0.0 (0.0-0.1) K/mm3 Abs Immat Gran (auto) 0.04 H (0.00-0.031) K/mm3 Absolute Neuts (auto) 8.9 H (1.3-6.7) K/mm3 Absolute Nucleated RBC 0.000 (0.0-0.012) K/mm3 Nucleated RBC % 0.0 (0.0-0.2) % PT 14.8 H (11.1-14.7) Seconds INR 1.1 APTT 22.2 L (22.3-36.8) Seconds Sodium 134 L (137-145) mmol/L Potassium 4.0 (3.4-5.0) mmol/L Chloride 99 (98-107) mmol/L Carbon Dioxide 26 (22-30) mmol/L Anion Gap 9 (4-12) mmol/L BUN 23 H (7-17) mg/dL Creatinine 0.76 (0.7-1.0) mg/dL Estim Creat Clear Calc 44 ml/min Estimated GFR > 60 (59 - ) Glucose 156 H (65-110) mg/dL Calcium 9.1 (8.4-10.2) mg/dL Total Bilirubin 0.7 (0.2-1.3) mg/dL AST 29 (14-36) U/L ALT 23 (6-35) U/L Alkaline Phosphatase 64 (38-126) U/L Total Protein 7.0 (6.3-8.2) g/dL Albumin 4.0 (3.5-5.1) g/dL Blood Type O Positive Antibody Screen Negative Discharge Plan Discharge Clinical Impression: Acute upper GI bleed Patient Disposition: Still a Patient Condition: Stable Patient Language: Sami Prescriptions: No Action aspirin [Adult Low Dose Aspirin] 81 mg tablet,delayed release (DR/EC) 81 mg PO DAILY glucosamine-chondroitin [Osteo Bi-Flex] 250-200 mg Tablet 1 tablet PO BID Rx Instructions: give after food/meal wtgptv-zcuavbjfiu-ztyfhmdq ext 20-1-2.2 mg capsule 3 cap PO DAILY EYEPLEX 2 cap PO DAILY CATALYN 3 cap PO DAILY CONGAPLEX 3 cap PO DAILY clopidogrel 75 mg tablet 75 mg PO DAILY Qty: 90 0RF rosuvastatin 10 mg tablet See Rx Instructions .ROUTE .COMPLEX Qty: 90 0RF Dose Instruction: TAKE 1 TABLET BY MOUTH EVERY DAY Rx Instructions: TAKE 1 TABLET BY MOUTH EVERY DAY tramadol 50 mg tablet 50 mg PO Q6H PRN (Reason: pain) Qty: 20 0RF cyclobenzaprine 5 mg tablet 5 mg PO TID PRN (Reason: muscle spasm) Qty: 60 0RF Follow-up/Referrals: Parker Gallardo MD [Primary Care Provider] -
[2024-10-12] MEDS: LACTATED RINGERS 1,000 ML 150 ML IV CONT (08:21)
--- NOTE | 2024-10-12 09:30 | P.PNAN_ITS ---
Anes - Initial Pre Proc Eval Procedure: Operation Date: 10/12/24 10:00 Proposed Procedures p Esophagogastroduodenoscopy - Tung Silverio MD Date/Time: 10/12/24 09:30 Surgeon: Tung Silverio MD Pre Op Diagnosis: N/V/D, VOMITING BLOOD, PREPPING FOR COLONOSCOPY Patient Data Age: 74 Gender: F Height: 1.6 m Weight: 48.6 kg Last Vital Signs Temp 36.4 C 10/12/24 07:35 Pulse 76 10/12/24 07:35 Resp 18 10/12/24 07:35 BP 124/65 10/12/24 07:35 Pulse Ox 98 10/12/24 07:35 O2 Del Method Room Air 10/12/24 07:35 Allergies Allergy/AdvReac Type Severity Reaction Status Date / Time No Known Allergies Allergy Verified 10/05/24 16:13 Home Medications ?Medication ?Instructions ?Recorded ?Confirmed ?Type aspirin 81 mg tablet,delayed 81 mg PO DAILY 08/30/22 10/12/24 History release (Adult Low Dose Aspirin) glucosamine-chondroitin 250 mg-200 1 tablet PO BID 12/20/22 10/12/24 History mg tablet (Osteo Bi-Flex) clopidogrel 75 mg tablet 75 mg PO DAILY #90 tabs 05/14/24 10/12/24 Rx rosuvastatin 10 mg tablet See Rx Instructions .Route 05/14/24 10/12/24 Rx .COMPLEX #90 tabs tramadol 50 mg tablet 50 mg PO Q6H PRN pain #20 tabs 08/18/24 10/12/24 Rx cyclobenzaprine 5 mg tablet 5 mg PO TID PRN muscle spasm #60 09/03/24 10/12/24 Rx tabs CATALYN 3 cap PO DAILY 10/05/24 10/12/24 History CONGAPLEX 3 cap PO DAILY 10/05/24 10/12/24 History EYEPLEX 2 cap PO DAILY 10/05/24 10/12/24 History lutein 20 mg-zeaxanthin 1 3 cap PO DAILY 10/05/24 10/12/24 History mg-bilberry fruit extract 2.2 mg capsule Laboratory Tests 10/12/24 01:39 WBC 11.1 H K/mm3 (4.5-10.0) RBC 3.63 L M/mm3 (4.2-5.4) Hgb 11.2 L g/dL (12.0-15.0) Hct 34.2 L % (37.0-47.0) MCV 94.2 fl (80-100) MCH 30.9 pg (26-34) MCHC 32.7 g/dl (32-36) RDW 11.9 % (11.5-14.5) Plt Count 184 k/mm3 (150-375) MPV 9.3 fl (7.4-10.4) Immature Gran % (Auto) 0.4 % (0-0.5) Neut % (Auto) 80.7 H % (45.5-73.1) Lymph % (Auto) 12.0 L % (18.3-44.2) [place] % (Auto) 6.0 % (2.6-8.5) Eos % (Auto) 0.5 % (0-4.4) Baso % (Auto) 0.4 % (0.2-1.2) Lymph # (Auto) 1.33 K/mm3 (0.9-3.2) [place] # (Auto) 0.7 H K/mm3 (0.1-0.6) Eos # (Auto) 0.1 K/mm3 (0-0.3) Baso # (Auto) 0.0 K/mm3 (0.0-0.1) Abs Immat Gran (auto) 0.04 H K/mm3 (0.00-0.031) Absolute Neuts (auto) 8.9 H K/mm3 (1.3-6.7) Absolute Nucleated RBC 0.000 K/mm3 (0.0-0.012) Nucleated RBC % 0.0 % (0.0-0.2) PT 14.8 H Seconds (11.1-14.7) INR 1.1 APTT 22.2 L Seconds (22.3-36.8) Sodium 134 L mmol/L (137-145) Potassium 4.0 mmol/L (3.4-5.0) Chloride 99 mmol/L (98-107) Carbon Dioxide 26 mmol/L (22-30) Anion Gap 9 mmol/L (4-12) BUN 23 H mg/dL (7-17) Creatinine 0.76 mg/dL (0.7-1.0) Estim Creat Clear Calc 44 ml/min Estimated GFR > 60 (59 - ) Glucose 156 H mg/dL (65-110) Calcium 9.1 mg/dL (8.4-10.2) Total Bilirubin 0.7 mg/dL (0.2-1.3) AST 29 U/L (14-36) ALT 23 U/L (6-35) Alkaline Phosphatase 64 U/L (38-126) Total Protein 7.0 g/dL (6.3-8.2) Albumin 4.0 g/dL (3.5-5.1) Blood Type O Positive Antibody Screen Negative Patient hx anesthesia problems: none Family hx anesthesia problems: none Results Review: All pre-operative results and documents have been reviewed as part of the pre- operative evaluation. [facility] Past Medical History Medical History Need for pneumococcal vaccination BCC (basal cell carcinoma of skin) HLD (hyperlipidemia) Age-related nuclear cataract, bilateral Surgical History Surgical History No pertinent past surgical history Family History Family History Sibling Family history of malignant neoplasm Social History Social History Smoking status: Never smoker Second hand tobacco smoke exposure: No Alcohol intake: current Substance use: never Substance use type: does not use Living arrangements: with family Occupation/Education: retired Gender identity (if verbalized by the patient): Female Sexual Orientation (if Verbalized by the Patient): Straight or Heterosexual Spiritual care concerns: No Anes - Eval Final PreProcedure Day of Procedure 10/12/24 09:30 Patient weight: normal Heart: regular rate and rhythm Lungs: clear to auscultation and normal air movement Airway: Mallampati scale class III Neurological: alert and oriented Last oral intake: >/= 8 hours ASA classification: II Emergent: yes Anesthetic plan: proceed Anesthesia type and monitoring: general GIVS and standard monitoring Results Review: All pre-operative results and documents have been reviewed as part of the pre- operative evaluation. Informed Consent: The patient's anesthetic plan and its attendant risks and benefits were discussed with the patient/family/POA. Questions were solicited and answers provided to the satisfaction of the patient/family/POA.
--- NOTE | 2024-10-12 09:52 | PM.HPGS ---
History of Present Illness History of Present Illness Consent: Risks, benefits, and alternatives have been discussed and questions answered. Patient agrees to proceed with procedure. Chief complaint: N/V/D, VOMITING BLOOD, PREPPING FOR COLONOSCOPY Narrative: Crescencio Farrar is a 74 year old female here originally to get a colonoscopy, last one 2018 without polyps but she did previously. She finished her miralax bowel prep but go sick and eventually had emesis with blood, came to ER, NGT placed with blood. She is doing ok and instead will do EGD to assess. Review of Systems Review of Systems: All systems reviewed & are unremarkable except as noted in HPI and below PMFSH Past Medical History Medical History Need for pneumococcal vaccination BCC (basal cell carcinoma of skin) HLD (hyperlipidemia) Age-related nuclear cataract, bilateral Surgical History Surgical History No pertinent past surgical history Family History Family History Sibling Family history of malignant neoplasm Social History Social History Smoking status: Never smoker Second hand tobacco smoke exposure: No Alcohol intake: current Substance use: never Substance use type: does not use Living arrangements: with family Occupation/Education: retired Gender identity (if verbalized by the patient): Female Sexual Orientation (if Verbalized by the Patient): Straight or Heterosexual Spiritual care concerns: No Meds Home Medications and Allergies Home Medications ?Medication ?Instructions ?Recorded ?Confirmed ?Type aspirin 81 mg tablet,delayed 81 mg PO DAILY 08/30/22 10/12/24 History release (Adult Low Dose Aspirin) glucosamine-chondroitin 250 mg-200 1 tablet PO BID 12/20/22 10/12/24 History mg tablet (Osteo Bi-Flex) clopidogrel 75 mg tablet 75 mg PO DAILY #90 tabs 05/14/24 10/12/24 Rx rosuvastatin 10 mg tablet See Rx Instructions .Route 05/14/24 10/12/24 Rx .COMPLEX #90 tabs tramadol 50 mg tablet 50 mg PO Q6H PRN pain #20 tabs 08/18/24 10/12/24 Rx cyclobenzaprine 5 mg tablet 5 mg PO TID PRN muscle spasm #60 09/03/24 10/12/24 Rx tabs CATALYN 3 cap PO DAILY 10/05/24 10/12/24 History CONGAPLEX 3 cap PO DAILY 10/05/24 10/12/24 History EYEPLEX 2 cap PO DAILY 10/05/24 10/12/24 History lutein 20 mg-zeaxanthin 1 3 cap PO DAILY 10/05/24 10/12/24 History mg-bilberry fruit extract 2.2 mg capsule Allergies Allergy/AdvReac Type Severity Reaction Status Date / Time No Known Allergies Allergy Verified 10/05/24 16:13 Vital Signs Vital Signs - 24 hr 10/12/24 01:30 10/12/24 01:35 10/12/24 01:37 Temperature 97.7 F Pulse Rate 82 83 83 Respiratory Rate 11 L 10 L 11 L Blood Pressure 109/65 109/65 109/65 Pulse Oximetry 98 98 98 Oxygen Delivery Room Air 10/12/24 02:34 10/12/24 02:59 10/12/24 03:47 Temperature Pulse Rate 81 71 74 Respiratory Rate 12 16 12 Blood Pressure 99/48 L 109/67 119/45 L Pulse Oximetry 97 98 98 Oxygen Delivery 10/12/24 04:01 10/12/24 04:31 10/12/24 05:01 Temperature Pulse Rate 71 72 71 Respiratory Rate 14 13 11 L Blood Pressure 108/50 L 110/60 135/62 Pulse Oximetry 98 97 99 Oxygen Delivery 10/12/24 05:02 10/12/24 07:35 Temperature 97.6 F Pulse Rate 78 76 Respiratory Rate 18 18 Blood Pressure 127/75 124/65 Pulse Oximetry 100 98 Oxygen Delivery Room Air Exam Const: General: comfortable and no acute distress HENMT: Other: ngt in place with coffee ground content Eyes: General: appearance normal, both eyes and all related structures Neck: Neck: no JVD Resp: Auscultation: clear to auscultation bilaterally Cardio: Rate: regular rate Rhythm: regular rhythm GI: Inspection: non-distended GI Palp: Yes Soft to palpation Skin: General skin exam: normal color Neuro: General: gait normal Speech: normal speech Extrem: General: normal to inspection Psych: Mental Status: mental status grossly normal Assessment and Plan Assessment and plan (1) Acute upper GI bleed: Code(s): K92.2 - Gastrointestinal hemorrhage, unspecified Status: Acute Assessment and Plan: she had sick after bowel prep and started with hematemesis probably MWT will do EGD now
--- OUTSIDE RECORDS SUMMARY | 2024-10-12 11:45 | XMS_ITS | Referral Summary ---
Author Organization [facility] Address [address] [place] [address] Care Team Providers Care Signal And Communications Maintainer Name Role Phone Parker Gallardo MD Primary Care Provider [phone] Source Comments [facility],non-owned Affiliates and Associated Physician Practices is amultiple site organization consisting of ambulatory clinics and hospital sitesin [place], [place], [place] and [place]. This disclosure is being madepursuant to the Care Everywhere program and may not contain all information available regarding this patient. Last updated 18.[facility] Allergies No known active allergies Medications Be [...] of Treatment Not on file Care Teams Signal And Communications Maintainer Relationship Specialty Start Date End Date Parker Gallardo MD [address] [place] [address] PCP - General 12/06/20
--- OUTSIDE RECORDS SUMMARY | 2024-10-12 11:45 | XMS_ITS | Clinical Summary ---
Author Organization [facility] Address [address] [place] [address] Phone Care Team Providers Care Education Director Name Role Phone Parker Gallardo MD [...] age to complete this topic Care Teams Education Director Relationship Specialty Start Date End Date Parker Gallardo MD [address] [place] [address] PCP - General Family Medicine 04/21/19
--- OUTSIDE RECORDS SUMMARY | 2024-10-12 11:45 | XMS_ITS | Clinical Summary ---
Author Organization [facility] Address [address] [place] [address] Care Team Providers Care Honing Machine Operator Semiautomatic Name Role Phone Parker Gallardo MD Primary Care Provider Eric RODRIGUEZ OD, Alejandro Shah Unavailable [phone] Fred Wallace MD Unavailable [phone] Sundar uCriel MD Unavailable [phone] Allergies No known active allergies Medications lutein 6 mg tablet Take by mouth Active glucosam-chondro itin-vit C-Mn 350-460-56-2.5 mg tablet Take by mouth Active aspirin [...] syndrome 08/19/2022 Diplopia 08/19/2022 Acute nonintractable headache Encounters Date Type Department Care Team Description 10/12/2024 1:04 AM THERMAL CUTTING MACHINE OPERATOR Hospital Encounter [facility] from Last 3 Months Surgical History Surgery Date Site/Laterality Comments NO [...] often do you attend chur ch or faith services? More than 4 times per year 08/22/2022 Do you belong to any clubs o r organizations such as gnosticism groups, unions, fraternal or athletic groups, or [...] on file Legal Sex Female 6:28 PM THERMAL CUTTING MACHINE OPERATOR Gender Identity Not on file Sexual Orientation Not on file Obstetrics History Para Term AB IAB SAB Ectopic Multiple Livin g Live Births 2 2 2 Date Outcome GA Total Labor Labor/2nd/3rd Weight Sex Type Anes PTL Ritu A1 A5 Name Clin Term Term Last Filed Vital Signs Vital Sign Reading Time Taken Comments Blood Pressure 107/61 10/26/2022 8:27 AM THERMAL CUTTING MACHINE OPERATOR Pulse 77 10/26/2022 8:27 AM THERMAL CUTTING MACHINE OPERATOR Temperature 36.4 C (97.6 F) 08/23/2022 12:09 PM THERMAL CUTTING MACHINE OPERATOR Respiratory Rate 20 08/23/2022 12:09 PM THERMAL CUTTING MACHINE OPERATOR Oxygen Saturation 98% 10/26/2022 8:27 AM THERMAL CUTTING MACHINE OPERATOR Inhaled Oxygen Concentration - - Weight [...] Recently Relevant to Health Maintenance Insurance [facility] Advance Directives For more information, please contact: [phone] * Full Code (Latest Code Status on File) Date Activated Date Inactivated Comments 08/21/2022 10:11 PM 08/23/2022 8:47 PM * Full Code Date Activated Date Inactivated Comments 08/20/2022 1:01 AM 08/21/2022 7:07 PM Care Teams Honing Machine Operator Semiautomatic Relationship Specialty Start Date End Date Parker Gallardo MD [address] [place] [address] PCP - General 03/06/17 Alejandro Reyes III, OD [address] [place] [address] Referring Physician Optometry 06/15/22 Fred Wallace MD [address] [place] [address] Referring Physician Ophthalmology 06/15/22 Sundar Curiel MD [address] [place] [address] [place] [address] Consulting Physician Neurology 08/23/22
--- OUTSIDE RECORDS SUMMARY | 2024-10-12 11:45 | XMS_ITS | Encounter Summary ---
Author Organization [facility] Healthcare Address [address] [place] [address] Care Team Providers Care Print Operator Name Role Phone Parker Gallardo MD Primary Care Provider Eric RODRIGUEZ OD, Lewis Francis Unavailable [phone] Fred Wallace MD Unavailable [phone] Sundar Curiel MD Unavailable [phone] Reason for Visit * Reason Onset Date Comments Scheduling Appointments 04/20/2021 Confirmi ng mammogram appt Encounter Details Date Type Department Care Team (Late st Contact Info) Description 04/20/2021 Telephone [facility] [address] [place] [id number] N[address]ma Palma [address] Scheduling Appointments (Confirming mammogram appt) Social History Tobacco Use Types Packs/Day Years Used Date Smoking Tobacco: Never Assessed Comments No Sex and Gender Information Value Date Recorded Sex Assigned at Not on file Legal Sex Female 6:28 PM ACTING PROFESSOR Gender Identity Not on file Sexual Orientation Not on file documented as of this encounter Plan of Treatment Not on file documented as of this encounter Visit Diagnoses Not on filedocumented in this encounter Additional Health Concerns Infection Onset Date Last Indicated Resolved Time COVID: Suspected 08/19/2022 08/19/2022 08/19/2022 9:32 PM ACTING PROFESSOR COVID: Suspected 08/21/2022 08/21/2022 08/21/2022 10:00 PM ACTING PROFESSOR documented as of this encounter Care Teams Print Operator Relationship Specialty Start Date End Date Parker Gallardo MD [address] [place] [address] PCP - General 03/06/17 Alejandro Reyes III, OD [address] [place] [address] Referring Physician Optometry 06/15/22 Fred Wallace MD [address] [place] [address] Referring Physician Ophthalmology 06/15/22 Sundar Curiel MD [address] [place] [address] [address] [place] [address] Consulting Physician Neurology 08/23/22 documented as of this encounter
--- OUTSIDE RECORDS SUMMARY | 2024-10-12 11:45 | XMS_ITS | Clinical Summary ---
Author Organization [facility] Address [address] [place] [place] [address] Care Team Providers Care Real Estate Financial Analyst Name Role Phone Parker Gallardo MD Primary Care Provider [phone] Source Comments [facility],non-owned Affiliates and Associated Physician Practices is amultiple site organization consisting of ambulatory clinics and hospital sitesin [place], [place], [place] and [place]. This disclosure is being madepursuant to the Care Everywhere program and may not contain all information available regarding this patient. Last updated 18.[facility] Allergies No known active allergies Medications Be [...] age to complete this topic Care Teams Real Estate Financial Analyst Relationship Specialty Start Date End Date Parker Gallardo MD [address] [place], [place] [id number] PCP - General 12/06/20
--- OUTSIDE RECORDS SUMMARY | 2024-10-12 11:45 | XMS_ITS | Encounter Summary ---
Author Organization [facility] Healthcare Address [address] [place] [address] Care Team Providers Care Cost Report Clerk Name Role Phone Parker Gallardo MD Primary Care Provider Eric RODRIGUEZ OD, Lewis Francis Unavailable [phone] Fred Wallace MD Unavailable [phone] Sundar Curiel MD Unavailable Encounter Details Date Type Department Care Team (Late st Contact Info) Description 10/12/2024 1:04 AM TIRE MAKER Hospital Encounter [facility] Social History Tobacco Use Types Packs/Day Years Used Date Smoking Tobacco: Never Smokeless Tobacco: Never Alcohol Use Standard Drinks/Week Comments Defer 0 [...] often do you attend chur ch or roman catholic services? More than 4 times per year 08/22/2022 Do you belong to any clubs o r organizations such as spiritism groups, unions, fraternal or athletic groups, or [...] on file Legal Sex Female 6:28 PM TIRE MAKER Gender Identity Not on file Sexual Orientation Not on file documented as of this encounter Plan of Treatment Not on file documented as of this encounter Visit Diagnoses Not on filedocumented in this encounter Care Teams Cost Report Clerk Relationship Specialty Start Date End Date Parker Gallardo MD [address] [place] [address] PCP - General 03/06/17 Alejandro Reyes III, OD [address] [place] [address] Referring Physician Optometry 06/15/22 Fred Wallace MD [address] [place] [address] Referring Physician Ophthalmology 06/15/22 Sundar Curiel MD [address] [facility] [address] [facility] [facility] [place] [address] Consulting Physician Neurology 08/23/22 documented as of this encounter
--- OUTSIDE RECORDS SUMMARY | 2024-10-12 11:45 | XMS_ITS | Referral Summary ---
Author Organization [facility] Address [address] [place] [address] Care Team Providers Care Pencil Maker Name Role Phone Parker Gallardo MD Primary Care Provider Eric RODRIGUEZ OD, Lewis Francis Unavailable [phone] Fred Wallace MD Unavailable [phone] Sundar Curiel MD Unavailable [phone] Encounters Date Type Department Care Team Description 10/12/2024 1:04 AM STRATEGIC ACCOUNT MANAGER Hospital Encounter [facility] from Last 3 Months Allergies No known active allergies Medications lutein 6 mg tablet Take by mouth Active glucosam-chondro itin-vit C-Mn 880-453-81-2.5 mg tablet Take by mouth Active aspirin [...] often do you attend chur ch or yazidi services? More than 4 times per year 08/22/2022 Do you belong to any clubs o r organizations such as samaritan groups, unions, fraternal or athletic groups, or [...] on file Legal Sex Female 6:28 PM STRATEGIC ACCOUNT MANAGER Gender Identity Not on file Sexual Orientation Not on file Last Filed Vital Signs Vital Sign Reading Time Taken Comments Blood Pressure 107/61 10/26/2022 8:27 AM STRATEGIC ACCOUNT MANAGER Pulse 77 10/26/2022 8:27 AM STRATEGIC ACCOUNT MANAGER Temperature 36.4 C (97.6 F) 08/23/2022 12:09 PM STRATEGIC ACCOUNT MANAGER Respiratory Rate 20 08/23/2022 12:09 PM STRATEGIC ACCOUNT MANAGER Oxygen Saturation 98% 10/26/2022 8:27 AM STRATEGIC ACCOUNT MANAGER Inhaled Oxygen Concentration - - Weight 49 [...] Most Recently Relevant to Health Maintenance Insurance [facility] Advance Directives For more information, please contact: [phone] * Full Code (Latest Code Status on File) Date Activated Date Inactivated Comments 08/21/2022 10:11 PM 08/23/2022 8:47 PM * Full Code Date Activated Date Inactivated Comments 08/20/2022 1:01 AM 08/21/2022 7:07 PM Care Teams Pencil Maker Relationship Specialty Start Date End Date Parker Gallardo MD [address] [facility] [address] [place] [address] PCP - General 03/06/17 Alejandro Reyes III, OD [address] [place] [address] Referring Physician Optometry 06/15/22 Fred Wallace MD [address] [place] [address] Referring Physician Ophthalmology 06/15/22 Sundar Curiel MD [address] [place] [address] [address] [facility] [place] [facility] [place] [address] Consulting Physician Neurology 08/23/22
--- OUTSIDE RECORDS SUMMARY | 2024-10-12 11:45 | XMS_ITS | Patient Health Summary ---
Author Organization [facility] Address [address] [place] [address] Care Team Providers Care Tack Puller Name Role Phone Parker Gallardo MD Primary Care Provider [phone] [facility],non-owned Affiliates and Associated Physician Practices is amultiple site organization consisting of ambulatory clinics and hospital sitesin [place], [place], [place] and [place]. This disclosure is being madepursuant to the Care Everywhere program and may not contain all information available regarding this patient. Last updated 18.[facility] Allergies No known active allergies Medications Be [...] AM CDT) Case Report Dermatopathology Report Case: [id number] Authorizing Provider: Segundo Iverson MD Collected: 12/02/2020 12:00 AM Ordering Location: [facility] DermPath Lab Received: 12/06/2020 08:15 AM Pathologist: Carmel Pena MD Specimen: Skin, left calf 5:41 PM CDT DERMATOPATHOLOGY LABORATORY Final Diagnosis Specimen A. SKIN, left calf: BASAL CELL CARCINOMA, MICRONODULAR TYPE (C44.719) 5:41 PM CDT DERMATOPATHOLOGY LABORATORY Clinical History Pig BCCA vs MM vs irr SK. Path# [id number]. 5:41 PM CDT DERMATOPATHOLOGY LABORATORY Gross Description Specimen A: Received is one formalin filled container labeled with the patient's name and designated left calf. The specimen consists of a shave biopsy measuring [id number]. Jar 0. 5:41 PM CDT DERMATOPATHOLOGY LABORATORY [...] characteristic determined by the Dermatopathology Laboratory at [facility], directed by Dr. Luis Manuel Conti. These tests need not be, and therefore are not, approved by the [place] Food and Drug Administration. The tests are used for clinical purposes. Billing Codes Specimen Charges Stain Charges 94813 1 1 5:41 PM CDT DERMATOPATHOLOGY LABORATORY Embedded Images 1 5:41 PM CDT DERMATOPATHOLOGY LABORATORY Pathology/Cytolog y TISSUE SPECIMEN FROM SKIN / Unknown 12/02/2020 12/06/2020 8:15 AM CDT Segundo Iverson MD LAB - PATHOLOGY/CYTO LOGY ORDERABLES DERMATOPATHOLOGY LABORATORY [facility] - Department of Dermatology [address], [address] [phone] * STREP A SCREEN (02/01/2017) Strep A Rapid POCT Negative Negative Strep A Internal Control Present Lot # [id number] Expiration Date [id number] Throat ENTIRE THROAT (SURFACE REGION OF NECK) / Unknown 02/01/2017 Charlie Arguelles JOURNEYMAN POWER PLANT OPERATOR-POWER BUILDER DEVELOPER LAB - POINT OF CARE ORDERABLES Care Teams Tack Puller Relationship Specialty Start Date End Date Parker Gallardo MD [address] [place] [address] PCP - General 12/06/20
--- OUTSIDE RECORDS SUMMARY | 2024-10-12 11:45 | XMS_ITS | Encounter Summary ---
Author Organization [facility] Address [address] [facility] [place] [address] Care Team Providers Care Manager Pediatric Name Role Phone Parker Gallardo MD Primary Care Provider [phone] Encounter Details Date Type Department Care Team (Late st Contact Info) Description 12/06/2020 Lab Requisition [facility] DermPath Lab [address] [facility], [place] [address] Segundo Iverson MD [address] [place] [address] Social History Tobacco Use Types [...] AM CDT) Case Report Dermatopathology Report Case: [id number] Authorizing Provider: Segundo Iverson MD Collected: 12/02/2020 12:00 AM Ordering Location: [facility]erm[facility] Lab Received: 12/06/2020 08:15 AM Pathologist: Carmel Pena MD Specimen: Skin, left calf 04/14/202 1 5:41 PM CDT DERMATOPATHOLOGY LABORATORY Final Diagnosis Specimen A. SKIN, left calf: BASAL CELL CARCINOMA, MICRONODULAR TYPE (C44.719) 5:41 PM CDT DERMATOPATHOLOGY LABORATORY Clinical History Pig BCCA vs MM vs irr SK. Path# [id number]. 5:41 PM CDT DERMATOPATHOLOGY LABORATORY Gross Description Specimen A: Received is one formalin filled container labeled with the patient's name and designated left calf. The specimen consists of a shave biopsy measuring [id number]. Jar 0. 5:41 PM CDT DERMATOPATHOLOGY LABORATORY [...] characteristic determined by the Dermatopathology Laboratory at [facility], directed by Dr. Luis Manuel Conti. These tests need not be, and therefore are not, approved by the [place] Food and Drug Administration. The tests are used for clinical purposes. Billing Codes Specimen Charges Stain Charges 43690 1 5:41 PM CDT DERMATOPATHOLOGY LABORATORY Embedded Images 5:41 PM CDT DERMATOPATHOLOGY LABORATORY Pathology/Cytolog y TISSUE SPECIMEN FROM SKIN / Unknown 12/02/2020 12/06/2020 8:15 AM CDT Segundo Iverson MD LAB - PATHOLOGY/CYTO LOGY ORDERABLES DERMATOPATHOLOGY LABORATORY [facility] - Department of Dermatology [address], [address] [phone] documented in this encounter Visit Diagnoses Not on filedocumented in this encounter Care Teams Manager Pediatric Relationship Specialty Start Date End Date Parker Gallardo MD [address] [place] [address] PCP - General 12/06/20 documented as of this encounter
== END 2024-10-12 11:42 | disposition home or self-care (01) ==
LOC: ANHED 07:19 → ANHENDO 09:04
PROVIDERS: Emergency Provider Emergency Medicine; PCP Family Medicine; Visit Provider Internal Medicine Gastroenterology
PROC: 0DJ08ZZ Inspection of Upper Intestinal Tract, Via Natural or Artificial Opening Endoscopic (ICD-10-PCS; CPT 43235; principal; 2024-10-12 10:00)
DX: K22.6 Gastro-esophageal laceration-hemorrhage syndrome (principal); E78.5 Hyperlipidemia, unspecified; Z79.82 Long term (current) use of aspirin; Z79.02 Long term (current) use of antithrombotics/antiplatelets; Z79.891 Long term (current) use of opiate analgesic; Z86.0100 Personal history of colon polyps, unspecified; Z85.828 Personal history of other malignant neoplasm of skin; Z80.9 Family history of malignant neoplasm, unspecified
CPT/HCPCS: 43235; 36415; 74177; 80053; 85025; 85610; 85730; 86850; 86900; 86901; 96361; 96374; 96375; 99285; J2003; J2004; J2470; J2704; J7030; J7120; Q9967

== ENCOUNTER 2025-03-12 00:04 | Day surgery (SDC) | payer OTHER, SELFPAY ==
[2025-02-24 13:12] VITALS: BMI 18.9
--- NOTE | 2025-03-02 09:47 | PC.NURSE ---
Spoke with patient regarding medication Plavix. Patient verbalizes understanding that the last dose is to be taken on 03/07/25 and the Endoscopist will instruct them when to restart after the procedure.
--- OUTSIDE RECORDS SUMMARY | 2025-03-12 00:09 | XMS_ITS | Encounter Summary ---
Author Organization [facility] Address [address] [facility] [place] [address] Care Team Providers Care Skein Bleacher Name Role Phone Parker Gallardo MD Primary Care Provider [phone] Encounter Details Date Type Department Care Team (Late st Contact Info) Description 12/06/2020 Lab Requisition [facility] DermPath Lab [address] [facility], [place] [address] Segundo Iverson MD [address] [place] [address] Social History Tobacco Use Types Packs/Day Years Used Date Smoking Tobacco: Never Comments Unknown Sex and Gender Information Value Date Recorded Sex Assigned at Not on file Legal Sex Female 5:51 PM CDT Gender Identity Not on file Sexual Orientation Not on file documented as of this encounter Plan of Treatment Not on file documented as of this encounter Procedures Procedure Name Priority Date/Time Associated Diagnosis Comments DERMATOPATHOLOGY Routine 12/02/2020 12:0 0 AM CDT documented in this encounter Results * DERMATOPATHOLOGY (12/02/2020 12:00 AM CDT) Case Report Dermatopathology Report Case: [id number] Authorizing Provider: Segundo Iverson MD Collected: 12/02/2020 12:00 AM Ordering Location: [facility] DermPath Lab Received: 12/06/2020 08:15 AM Pathologist: Carmel Pena MD Specimen: Skin, left calf 5:41 PM CDT DERMATOPATHOLOGY LABORATORY Final Diagnosis Specimen A. SKIN, left calf: BASAL CELL CARCINOMA, MICRONODULAR TYPE (C44.719) 5:41 PM CDT DERMATOPATHOLOGY LABORATORY at 1741 CDT Clinical History Pig BCCA vs MM vs irr SK. Path# [id number]. 5:41 PM CDT DERMATOPATHOLOGY LABORATORY Gross Description Specimen A: Received is one formalin filled container labeled with the patient's name and designated left calf. The specimen consists of a shave biopsy measuring [id number]. Jar 0. 5:41 PM CDT DERMATOPATHOLOGY LABORATORY [...] characteristic determined by the Dermatopathology Laboratory at [facility], directed by Dr. Luis Manuel Conti. These tests need not be, and therefore are not, approved by the [place] Food and Drug Administration. The tests are used for clinical purposes. Billing Codes Specimen Charges Stain Charges 03899 1 5:41 PM CDT DERMATOPATHOLOGY LABORATORY Embedded Images 5:41 PM CDT DERMATOPATHOLOGY LABORATORY Pathology/Cytolog y TISSUE SPECIMEN FROM SKIN / Unknown 12/02/2020 12/06/2020 8:15 AM CDT us Segnudo Iverson MD LAB - PATHOLOGY/CYTOLOGY ORDER ROSMERY Final Result DERMATOPATHOLOGY LABORATORY [facility] - Department of Dermatology [address] [phone] documented in this encounter Visit Diagnoses Not on filedocumented in this encounter Care Teams Skein Bleacher Relationship Specialty Start Date End Date Parker Gallardo MD [address] [place] [address] PCP - General 12/06/20 documented as of this encounter
--- OUTSIDE RECORDS SUMMARY | 2025-03-12 00:09 | XMS_ITS | Encounter Summary ---
Author Organization [facility] Healthcare Address [address] [place] [address] Care Team Providers Care Crimping Machine Operator Name Role Phone Parker Gallardo MD Primary Care Provider Eric RODRIGUEZ OD, Lewis Francis Unavailable [phone] Fred Wallace MD Unavailable [phone] Sundar Cureil MD Unavailable [phone] Reason for Visit * Reason Onset Date Comments Scheduling Appointments 04/20/2021 Confirmi ng mammogram appt Encounter Details Date Type Department Care Team (Late st Contact Info) Description 04/20/2021 Telephone [facility] [address] [place] [address] Najma Palma RT Scheduling Appointments (Confirming mammogram appt) Social History Tobacco Use Types Packs/Day Years Used Date Smoking Tobacco: Never Assessed Comments No Sex and Gender Information Value Date Recorded Sex Assigned at Not on file Legal Sex Female 6:28 PM SUPERVISOR GREEN END DEPARTMENT Gender Identity Not on file Sexual Orientation Not on file documented as of this encounter Plan of Treatment Not on file documented as of this encounter Visit Diagnoses Not on filedocumented in this encounter Additional Health Concerns Infection Onset Date Last Indicated Resolved Time COVID: Suspected 08/19/2022 08/19/2022 08/19/2022 9:32 PM SUPERVISOR GREEN END DEPARTMENT COVID: Suspected 08/21/2022 08/21/2022 08/21/2022 10:00 PM SUPERVISOR GREEN END DEPARTMENT documented as of this encounter Care Teams Crimping Machine Operator Relationship Specialty Start Date End Date Parker Gallardo MD [address] [place] [address] PCP - General 03/06/17 Alejandro Reyes III, OD [address] [place] [address] Referring Physician Optometry 06/15/22 Fred Wallace MD [address] [place] [address] Referring Physician Ophthalmology 06/15/22 Sundar Curiel MD [address] [place] [address] [address] [place] [address] Consulting Physician Neurology 08/23/22 documented as of this encounter
--- OUTSIDE RECORDS SUMMARY | 2025-03-12 00:09 | XMS_ITS | Referral Summary ---
Author Organization [facility] Address [address] [place] [address] Care Team Providers Care Theatrical Scenic Designer Name Role Phone Parker Gallardo MD Primary Care Provider Eric RODRIGUEZ OD, Lewis Francis Unavailable [phone] Fred Wallace MD Unavailable [phone] Sundar Curiel MD Unavailable [phone] Allergies No known active allergies Medications lutein 6 mg tablet Take by mouth Active glucosam-chondro itin-vit C-Mn 005-563-43-2.5 mg tablet Take by mouth Active aspirin [...] often do you attend chur ch or mandaeism services? More than 4 times per year 08/22/2022 Do you belong to any clubs o r organizations such as taoist groups, unions, fraternal or athletic groups, or [...] on file Legal Sex Female 6:28 PM CHRISTIAN COUNSELOR Gender Identity Not on file Sexual Orientation Not on file Last Filed Vital Signs Vital Sign Reading Time Taken Comments Blood Pressure 107/61 10/26/2022 8:27 AM CHRISTIAN COUNSELOR Pulse 77 10/26/2022 8:27 AM CHRISTIAN COUNSELOR Temperature 36.4 C (97.6 F) 08/23/2022 12:09 PM CHRISTIAN COUNSELOR Respiratory Rate 20 08/23/2022 12:09 PM CHRISTIAN COUNSELOR Oxygen Saturation 98% 10/26/2022 8:27 AM CHRISTIAN COUNSELOR Inhaled Oxygen Concentration - - Weight 49 kg (108 lb) 06/05/2024 8:43 AM CDT Height 160 cm (5' 3) 06/05/2024 8:43 AM CDT Body Mass Index [...] Most Recently Relevant to Health Maintenance Insurance [facility] [place] [id number] Advance Directives For more information, please contact: [phone] * Full Code (Latest Code Status on File) Date Activated Date Inactivated Comments 08/21/2022 10:11 PM 08/23/2022 8:47 PM * Full Code Date Activated Date Inactivated Comments 08/20/2022 1:01 AM 08/21/2022 7:07 PM Care Teams Theatrical Scenic Designer Relationship Specialty Start Date End Date Parker Gallardo MD [address] [facility] [address] [place] [address] PCP - General 03/06/17 Alejandro Reyes III, OD [address] [place] [address] Referring Physician Optometry 06/15/22 Fred Wallace MD [address] [place] [address] Referring Physician Ophthalmology 06/15/22 Sundar Curiel MD [address] [place] [address] [address] [place] [address] Consulting Physician Neurology 08/23/22
--- OUTSIDE RECORDS SUMMARY | 2025-03-12 00:09 | XMS_ITS | Clinical Summary ---
Author Organization [facility] [employer] Address [address] [facility] [place] [address] Care Team Providers Care Labor Law Professor Name Role Phone Parker Gallardo MD Primary Care Provider [phone] Source Comments [facility] [employer],non-owned Affiliates and Associated Physician Practices is amultiple site organization consisting of ambulatory clinics and hospital sitesin [place], [place], [place] and [place]. This disclosure is being madepursuant to the Care Everywhere program and may not contain all information available regarding this patient. Last updated 18.[facility] Allergies No known active allergies Medications * Be aware that medications may not be up to date on this document. Alwaysverify current medications with the patient. No known [...] 10:52 AM CDT Height 160 cm (5' 3) 02/01/2017 10:52 AM CDT Body Mass Index [...] VACCINE (1 - 2023-2 5 season) 2024 DEPRESSION SCREENING 08/26/2024 INFLUENZA VACCINE (#1) 2025 Respiratory Syncytial Virus (RSV) Vaccine Pt: or [...] to complete this topic MENINGOCOCCAL (Group B) VACC INE SHARED DECISION-MAKING Aged Out No longer eligibl e based on patient's age to complete this topic MENINGOCOCCAL GROUPS A/C/Y/W VACCINE Aged Out No longer eligible b ased on patient's age to complete this topic Insurance [facility] MEDICARE Care Teams Labor Law Professor Relationship Specialty Start Date End Date Parker Gallardo MD [address] [place], [place] [id number] PCP - General 12/06/20
--- OUTSIDE RECORDS SUMMARY | 2025-03-12 00:09 | XMS_ITS | Clinical Summary ---
Author Organization [facility] Address [address] [place] [address] Care Team Providers Care Councilor Name Role Phone Parker Gallardo MD Primary Care Provider Eric RODRIGUEZ OD, Alejandro Shah Unavailable [phone] Fred Wallace MD Unavailable [phone] Sundar Curiel MD Unavailable [phone] Allergies No known active allergies Medications lutein 6 mg tablet Take by mouth Active glucosam-chondro itin-vit C-Mn [id number] mg tablet Take by mouth Active aspirin [...] often do you attend chur ch or mosque services? More than 4 times per year 08/22/2022 Do you belong to any clubs o r organizations such as anglican groups, unions, fraternal or athletic groups, or [...] file Legal Sex Female 6:28 PM [employer] Gender Identity Not on file Sexual Orientation Not on file Obstetrics History Para Term AB IAB SAB Ectopic Multiple Livin g Live Births 2 2 2 Date Outcome GA Total Labor Labor/2nd/3rd Weight Sex Type Anes PTL Ritu A1 A5 Name Clin Term Term Last Filed Vital Signs Vital Sign Reading Time Taken Comments Blood Pressure 107/61 10/26/2022 8:27 AM [employer] Pulse 77 10/26/2022 8:27 AM [employer] Temperature 36.4 C (97.6 F) 08/23/2022 12:09 PM [employer] Respiratory Rate 20 08/23/2022 12:09 PM [employer] Oxygen Saturation 98% 10/26/2022 8:27 AM [employer] Inhaled Oxygen Concentration - - Weight 49 kg (108 lb) 06/05/2024 8:43 AM CDT Height 160 cm (5' 3) 06/05/2024 8:43 AM CDT Body Mass Index 19.13 06/05/2024 8:43 AM CDT Plan of Treatment Health Maintenance Due Date Last Done Comments Colon Cancer Screening-Colonoscopy 1950 Depression Screening 1950 Hepatitis C Screening 1950 Osteoporosis Screening-Bone Density Scan 1950 Hepatitis B Screening 02/26/1970 Pneumococcal vaccine 65+ (1 of 1 - PCV) 02/26/2002 Zoster Vaccine (1 of 2) 02/26/2002 Well Visit 65+ 02/26/2017 Fall Risk Assessment 08/23/2023 08/23/2022 Influenza Vaccine (#1) 2025 Breast Cancer Screening-Mammogram 06/05/2025 06/05/2024, 05/30/2023, 05/19/2022, [...] Most Recently Relevant to Health Maintenance Insurance [facility] Advance Directives For more information, please contact: [phone] * Full Code (Latest Code Status on File) Date Activated Date Inactivated Comments 08/21/2022 10:11 PM 08/23/2022 8:47 PM * Full Code Date Activated Date Inactivated Comments 08/20/2022 1:01 AM 08/21/2022 7:07 PM Care Teams Councilor Relationship Specialty Start Date End Date Parker Gallardo MD [address] [place] [address] PCP - General 03/06/17 Alejandro Reyes III, OD [address] [place] [address] Referring Physician Optometry 06/15/22 Fred Wallace MD [address] [place] [address] Referring Physician Ophthalmology 06/15/22 Sundar Curiel MD [address] [place] [address] [place] [address] Consulting Physician Neurology 08/23/22
--- OUTSIDE RECORDS SUMMARY | 2025-03-12 00:09 | XMS_ITS | Clinical Summary ---
Author Organization [facility] Address [address] [place] [address] Phone Care Team Providers Care Entry Level Civil Engineer Name Role Phone Parker Gallardo MD Primary [...] age to complete this topic Care Teams Entry Level Civil Engineer Relationship Specialty Start Date End Date Parker Gallardo MD [address] [place] [address] PCP - General Family Medicine 04/21/19
--- NOTE | 2025-03-12 07:55 | P.PNAN_ITS ---
Anes - Initial Pre Proc Eval Procedure: Operation Date: 03/12/25 11:00 Proposed Procedures p Screening Colonoscopy - Tung Silverio MD Date/Time: 03/12/25 07:55 Surgeon: Tung Silverio MD Pre Op Diagnosis: neoplasm screening Patient Data Age: 75 Gender: F Height: 1.6 m Weight: 48.6 kg Allergies Allergy/AdvReac Type Severity Reaction Status Date / Time No Known Allergies Allergy Verified 03/12/25 10:23 Home Medications ?Medication ?Instructions ?Recorded ?Confirmed ?Type aspirin 81 mg tablet,delayed 81 mg PO DAILY 08/30/22 03/12/25 History release (Adult Low Dose Aspirin) glucosamine-chondroitin 250 mg-200 1 tablet PO BID 12/20/22 03/12/25 History mg tablet (Osteo Bi-Flex) tramadol 50 mg tablet 50 mg PO Q6H PRN pain #20 tabs 08/18/24 02/24/25 Rx cyclobenzaprine 5 mg tablet 5 mg PO TID PRN muscle spasm #60 09/03/24 02/24/25 Rx tabs CATALYN 3 cap PO DAILY 10/05/24 03/12/25 History lutein 20 mg-zeaxanthin 1 3 cap PO DAILY 10/05/24 03/12/25 History mg-bilberry fruit extract 2.2 mg capsule clopidogrel 75 mg tablet See Rx Instructions .Route 10/28/24 03/12/25 Rx .COMPLEX #90 tabs rosuvastatin 10 mg tablet See Rx Instructions .Route 10/28/24 03/12/25 Rx .COMPLEX #90 tabs Patient hx anesthesia problems: none Family hx anesthesia problems: none Results Review: All pre-operative results and documents have been reviewed as part of the pre- operative evaluation. [facility] Past Medical History Medical History (Updated 03/12/25 @ 10:36 by Tung Silverio MD) Colon polyp TIA (transient ischemic attack) 2021 Need for pneumococcal vaccination BCC (basal cell carcinoma of skin) HLD (hyperlipidemia) Age-related nuclear cataract, bilateral Surgical History Surgical History No pertinent past surgical history Family History Family History Sibling Family history of malignant neoplasm Social History Social History Smoking status: Never smoker Second hand tobacco smoke exposure: No Alcohol intake: current Substance use: never Substance use type: does not use Living arrangements: alone Occupation/Education: retired Gender identity (if verbalized by the patient): Female Sexual Orientation (if Verbalized by the Patient): Straight or Heterosexual Spiritual care concerns: No Anes - Eval Final PreProcedure Day of Procedure 03/12/25 07:55 Patient weight: normal Heart: regular rate and rhythm Lungs: clear to auscultation and normal air movement Airway: Mallampati scale class II Neurological: alert and oriented Last oral intake: >/= 8 hours ASA classification: III Emergent: no Anesthetic plan: proceed Anesthesia type and monitoring: general GIVS and standard monitoring Results Review: All pre-operative results and documents have been reviewed as part of the pre- operative evaluation. Informed Consent: The patient's anesthetic plan and its attendant risks and benefits were discussed with the patient/family/POA. Questions were solicited and answers provided to the satisfaction of the patient/family/POA.
[2025-03-12 10:24] VITALS: BP 135/61; PULSE 65; RESP 19; TEMP 36.4; O2SAT 100
[2025-03-12] MEDS: LACTATED RINGERS 1,000 ML 150 ML IV CONT (10:33)
--- NOTE | 2025-03-12 10:36 | PM.HPGS ---
History of Present Illness History of Present Illness Consent: Risks, benefits, and alternatives have been discussed and questions answered. Patient agrees to proceed with procedure. Chief complaint: neoplasm screening Narrative: Crescencio Farrar is a 75 year old female with history of colon polyp, last colonoscopy 2018 Review of Systems Review of Systems: All systems reviewed & are unremarkable except as noted in HPI and below PMFSH Past Medical History Medical History (Updated 03/12/25 @ 10:36 by Tung Silverio MD) Colon polyp TIA (transient ischemic attack) 2021 Need for pneumococcal vaccination BCC (basal cell carcinoma of skin) HLD (hyperlipidemia) Age-related nuclear cataract, bilateral Surgical History Surgical History No pertinent past surgical history Family History Family History Sibling Family history of malignant neoplasm Social History Social History Smoking status: Never smoker Second hand tobacco smoke exposure: No Alcohol intake: current Substance use: never Substance use type: does not use Living arrangements: alone Occupation/Education: retired Gender identity (if verbalized by the patient): Female Sexual Orientation (if Verbalized by the Patient): Straight or Heterosexual Spiritual care concerns: No Meds Home Medications and Allergies Home Medications ?Medication ?Instructions ?Recorded ?Confirmed ?Type aspirin 81 mg tablet,delayed 81 mg PO DAILY 08/30/22 03/12/25 History release (Adult Low Dose Aspirin) glucosamine-chondroitin 250 mg-200 1 tablet PO BID 12/20/22 03/12/25 History mg tablet (Osteo Bi-Flex) tramadol 50 mg tablet 50 mg PO Q6H PRN pain #20 tabs 08/18/24 02/24/25 Rx cyclobenzaprine 5 mg tablet 5 mg PO TID PRN muscle spasm #60 09/03/24 02/24/25 Rx tabs CATALYN 3 cap PO DAILY 10/05/24 03/12/25 History lutein 20 mg-zeaxanthin 1 3 cap PO DAILY 10/05/24 03/12/25 History mg-bilberry fruit extract 2.2 mg capsule clopidogrel 75 mg tablet See Rx Instructions .Route 10/28/24 03/12/25 Rx .COMPLEX #90 tabs rosuvastatin 10 mg tablet See Rx Instructions .Route 10/28/24 03/12/25 Rx .COMPLEX #90 tabs Allergies Allergy/AdvReac Type Severity Reaction Status Date / Time No Known Allergies Allergy Verified 03/12/25 10:23 Vital Signs Vital Signs - 24 hr 03/12/25 10:24 Temperature 97.5 F L Pulse Rate 65 Respiratory Rate 19 Blood Pressure 135/61 Pulse Oximetry 100 Oxygen Delivery Room Air Exam Const: General: comfortable and no acute distress HENMT: Face/Nose/Sinus: Normal nares present Eyes: General: appearance normal, both eyes and all related structures Neck: Neck: no JVD Resp: Auscultation: clear to auscultation bilaterally Cardio: Rate: regular rate Rhythm: regular rhythm GI: Inspection: non-distended GI Palp: Yes Soft to palpation Skin: General skin exam: normal color Neuro: Speech: normal speech Extrem: General: normal to inspection Psych: Mental Status: mental status grossly normal Assessment and Plan Assessment and plan (1) Colon polyp: Code(s): K63.5 - Polyp of colon Status: Acute Assessment and Plan: colonoscopy
[2025-03-12 10:53] VITALS: BP 103/41; PULSE 68; RESP 13; O2SAT 98
[2025-03-12 11:03] VITALS: BP 93/48; PULSE 66; RESP 20; O2SAT 100
[2025-03-12 11:06] VITALS: BP 110/63
[2025-03-12 11:13] VITALS: BP 124/56; PULSE 60; RESP 16; O2SAT 100
== END 2025-03-12 11:33 | disposition home or self-care (01) ==
PROVIDERS: PCP Family Medicine; Referring Provider Family Medicine; Visit Provider Internal Medicine Gastroenterology
PROC: 0DJD8ZZ Inspection of Lower Intestinal Tract, Via Natural or Artificial Opening Endoscopic (ICD-10-PCS; CPT 45378; principal; 2025-03-12 11:00)
DX: Z12.11 Encounter for screening for malignant neoplasm of colon (principal); Z86.0100 Personal history of colon polyps, unspecified
CPT/HCPCS: G0105; J2003; J2704; J7120